=== PATIENT | male | born 1935 | race Caucasian/White ===

== ENCOUNTER 2021-02-24 10:00 | Outpatient (REF) | payer MEDICARE, SELFPAY ==
[2021-02-24 11:43] LABS: Hematocrit 42.4 % (42.0-52.0); Hemoglobin 14.3 g/dl (14.0-18.0); Mean Corpuscular HGB Conc 33.7 g/dl (31.0-36.0); Mean Corpuscular Hemoglobin 32.6 pg (27.0-33.0); Mean Corpuscular Volume 96.6 fL (80.0-98.0); Mean Platelet Volume 10.3 fL (9.4-12.4); Platelet Count 192 X10*3/uL (160-400); Red Blood Count 4.39 X10*6/uL (4.60-5.80); Red Cell Distribution Width 12.5 % (11.0-16.0)
[2021-02-24 12:06] LABS: Alanine Aminotransferase 27 U/L (0-40); Albumin Level 4.1 g/dL (3.5-5.0); Alkaline Phosphatase 61 U/L (39-117); Anion Gap 10 (12-20); Aspartate Amino Transferase 29 U/L (5-37); Bilirubin Total 0.6 mg/dL (0.0-1.0); Blood Urea Nitrogen 25 mg/dL (9-16); Calcium 9.4 mg/dL (8.4-10.2); Carbon Dioxide 27 mmol/L (22-29); Chloride 106 mmol/L (96-108); Estimated Glomerular Filt Rate 57; Glucose Random 82 mg/dL (60-115); Potassium 4.1 mmol/L (3.3-5.1); Sodium 139 mmol/L (135-145); Total Protein 7.2 g/dL (6.5-8.0)
== END 2021-02-24 10:01 | disposition home or self-care (01) ==
LOC: HO.LAB 10:00
PROVIDERS: PCP Internal Medicine; Referring Provider Internal Medicine; Visit Provider Nurse Practitioner Family
DX: R15.9 Full incontinence of feces (principal)
CPT/HCPCS: 36415; 80053; 85027; 99202

== ENCOUNTER 2021-04-02 10:26 | Day surgery (SDC) | payer MEDICARE, SELFPAY ==
[2021-04-02 11:02] VITALS: BP 175/98; PULSE 54; RESP 18; TEMP 36.2; O2SAT 97; BMI 25.9
[2021-04-02] MEDS: Lactated Ringers 1,000 ML 100 ML IVCONT (11:30)
--- NOTE | 2021-04-02 11:53 | P.HPSUR_ITS ---
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 christianity region Hx of arthroscopy Hx of cholecystectomy Hx of colonoscopy Hx of inguinal hernia repair Hx of knee surgery) Allergies: Allergies Allergy/AdvReac Type Severity Reaction Status Date / Time Iodinated Contrast Media AdvReac Severe ALTERED Verified 04/02/21 11:07 [IV Dye, Iodine Containing] MENTAL STATUS Review of Systems Sugical H&P ROS: Negative: Constitution, Cardiovascular, Respiratory, Neurological, Psychiatric, Hem-Onc, Allergic/Immunologic, Gastrointestinal, Genitourinary, Musculoskeletal, Integumentary, Endocrine and Eyes/Ears/Nose/Throat Exam Surgical H&P Exam: Normal: HEENT, Normal: Heart, Normal: Lungs, Normal: Extremities, Normal: Abdomen, Normal: Skin and Normal: Neurological Plan Diagnosis/Plan: Unchanged I have reviewed the history and physical and performed a pertinent physical examination on my patient. No changes have occurred unless specified.
--- NOTE | 2021-04-02 11:53 | HO.ANESPROP2 ---
[facility] Family History Family History (Updated 02/24/21 @ 10:44 by Rosemarie Bermudez) Maternal Grandmother Diabetes Maternal Uncle Diabetes Maternal Aunt Diabetes Mother Diabetes HTN (hypertension) Colon cancer Stroke Father Hernia Stroke Diverticulosis Pneumonia Brother Epilepsia Schizophrenia Surgical History Surgical History (Updated 02/24/21 @ 10:51 by Rosemarie Bermudez) History of cataract History of herniated intervertebral disc History of lithotripsy History of prostate surgery History of surgical removal of squamous cell carcinoma of skin of roman catholic region Hx of arthroscopy Hx of cholecystectomy Hx of colonoscopy Hx of inguinal hernia repair Hx of knee surgery Social History Social History (Updated 02/24/21 @ 10:12 by Rosemarie Bermudez) Alcohol intake: current Alcohol intake frequency: holidays/special occasions only Patient Tobacco Use Status: Never used Tobacco Use of substances other than those prescribed or required for medical reasons: No Have you been hit, kicked, punched, or otherwise hurt by someone within the past year? If so, by whom?: No Are you DNR?: No Advance Directives: No Advance Directives Information Provided: Yes Recently lost weight without trying: No Nutrition Risks: No Nutritional Risk Meds Allergies Allergy/AdvReac Type Severity Reaction Status Date / Time Iodinated Contrast Media AdvReac Severe ALTERED Verified 04/02/21 11:07 [IV Dye, Iodine Containing] MENTAL STATUS Home Medications Medication Instructions Recorded Confirmed Last Taken Type atenolol 50 mg tablet 50 mg PO DAILY 02/24/21 02/24/21 Unknown History cholecalciferol (vitamin D3) 25 25 mcg PO DAILY 02/24/21 02/24/21 Unknown History mcg (1,000 unit) capsule pravastatin 40 mg tablet 40 mg PO BEDTIME 02/24/21 02/24/21 Unknown History Exam Exam Date and Time: April 02, 2021 1153 Height,Weight and Vital Signs: Height 5 ft 6 in Weight 73.028 kg Last Vital Signs Temp 97.2 F 04/02/21 11:02 Pulse 54 04/02/21 11:02 Resp 18 04/02/21 11:02 BP 175/98 H 04/02/21 11:02 Pulse Ox 97 04/02/21 11:02 Airway Mallampati Class: II
--- NOTE | 2021-04-02 11:53 | HO.ANESPROP2 ---
COUNTS INCLUDE 234 BEDS AT THE [facility] Family History Family History (Updated 02/24/21 @ 10:44 by Rosemarie Bermudez) Maternal Grandmother Diabetes Maternal Uncle Diabetes Maternal Aunt Diabetes Mother Diabetes HTN (hypertension) Colon cancer Stroke Father Hernia Stroke Diverticulosis Pneumonia Brother Epilepsia Schizophrenia Family history of problems with anesthesia: No Surgical History Surgical History (Updated 02/24/21 @ 10:51 by Rosemarie Bermudez) History of cataract History of herniated intervertebral disc History of lithotripsy History of prostate surgery History of surgical removal of squamous cell carcinoma of skin of denominational region Hx of arthroscopy Hx of cholecystectomy Hx of colonoscopy Hx of inguinal hernia repair Hx of knee surgery History of Problems with Anesthesia: No Social History Social History (Updated 02/24/21 @ 10:12 by Rosemarie Bermudez) Alcohol intake: current Alcohol intake frequency: holidays/special occasions only Patient Tobacco Use Status: Never used Tobacco Use of substances other than those prescribed or required for medical reasons: No Have you been hit, kicked, punched, or otherwise hurt by someone within the past year? If so, by whom?: No Are you DNR?: No Advance Directives: No Advance Directives Information Provided: Yes Recently lost weight without trying: No Nutrition Risks: No Nutritional Risk Meds Allergies Allergy/AdvReac Type Severity Reaction Status Date / Time Iodinated Contrast Media AdvReac Severe ALTERED Verified 04/02/21 11:07 [IV Dye, Iodine Containing] MENTAL STATUS Home Medications Medication Instructions Recorded Confirmed Last Taken Type atenolol 50 mg tablet 50 mg PO DAILY 02/24/21 02/24/21 Unknown History cholecalciferol (vitamin D3) 25 25 mcg PO DAILY 02/24/21 02/24/21 Unknown History mcg (1,000 unit) capsule pravastatin 40 mg tablet 40 mg PO BEDTIME 02/24/21 02/24/21 Unknown History Exam Exam Date and Time: April 02, 2021 1153 Height,Weight and Vital Signs: Height 5 ft 6 in Weight 73.028 kg Last Vital Signs Temp 97.2 F 04/02/21 11:02 Pulse 54 04/02/21 11:02 Resp 18 04/02/21 11:02 BP 175/98 H 04/02/21 11:02 Pulse Ox 97 04/02/21 11:02 Airway Mallampati Class: II TM Dist: >3cm Neck ROM: Full Assessment and Plan Assessment Anesthesia Assessment: Anesthesia Plan Discussed and Chart Reviewed Final Anesthetic Review Family History of Problems with Anesthesia: No History of Problems with Anesthesia: No NPO: Yes ASA Class: II Final Preanesthetic Review: No Changes in Pt Med Stat, Meds/Allgs Chart Reviewed, Consent Obtained/Reviewed and Anes Risks/Benef Reviewed Patient Risk: Intermediate Procedure Risk: Low Anesthetic Plan Anesthetic Plan: MAC: Disposition: Standard PACU
--- NOTE | 2021-04-02 11:54 | P.OP_ITS ---
Operative Note Operative Note Date of Service: 04/02/21 Narrative: Operative Information Procedure Description: Colonoscopy COLONOSCOPY Instrument: Olympus variable stiffness pediatric scope 190L Colonoscopy Monitoring: Vital signs and clinical assessment, continuous EKG monitoring, Pulse oximetry, Carbon Dioxide monitoring and blood pressure monitoring were done throughout the procedure. Colon withdrawal time was 6 minutes. Procedure: The patient was placed in the left lateral decubitis position and pre-procedure medications were administered. After a digital rectal examination of the ano-rectum, the video colonoscope was inserted into the rectum and advanced through the colon to the cecum/TI. The colonoscope was slowly withdrawn in a retrograde panoramic fashion and the colon mucosa was carefully examined including a retroflexed view of the rectum. Findings and interventions are described below. Procedure Diffi easyculty: Findings: Terminal Ileum-normal Cecum:normal Ascending Colon: normal Transverse Colon -normal Descending Colon:normal Sigmoid Colon: moderately severe diverticulosis Rectum: Retroflexion with small internal hemorrhoids, grade I Anorectum - normal, he had good squeeze and normal tone on rectal exam, no masses felt, no paradoxical contraction Colon preparation: [place] Bowel Preparation Scale Right colon; 2 Transverse colon: 2 Left colon; 2 (0 = Unprepared colon segment with mucosa not seen due to solid stool that cannot be cleared. 1 = Portion of mucosa of the colon segment seen, but other areas of the colon segment not well seen due to staining, residual stool and/or opaque liquid. 2 = Minor amount of residual staining, small fragments of stool and/or opaque liquid, but mucosa of colon segment seen well. 3 = Entire mucosa of colon segment seen well with no residual staining, small fragments of stool or opaque liquid) Impression and Post Procedure Diagnosis: internal hemorrhoids Plan: High fiber diet leaflet Avoid straining at stool, epsom salts and sitz bath, anusol supps or cream Repeat Colonoscopy in 5 years if health allows or earlier if clinically indicated, otherwise this would be his last screening colonoscopy He can increase the citrucel to BID Above findings were reviewed with the patient and relevant handouts were provided if indicated.
--- NOTE | 2021-04-02 11:54 | PM.OP ---
Brief Operative Note Date of Service: 04/02/21 Pre-op diagnosis: screening colonoscopy Post-op diagnosis: same Procedure: see op note Surgeon: Gentry Angulo MD Anesthesia: MAC Was an [employer] used for this Procedure?: No Estimated blood loss (mL): 0 Condition: stable Disposition: PACU
[2021-04-02 12:45] VITALS: BP 119/75; PULSE 55; RESP 16; TEMP 36.2; O2SAT 97
[2021-04-02 13:00] VITALS: BP 151/87; PULSE 48; RESP 16; O2SAT 97
[2021-04-02 13:30] VITALS: BP 163/95; PULSE 47; RESP 16; TEMP 36.2; O2SAT 98
== END 2021-04-02 14:17 | disposition home or self-care (01) ==
PROVIDERS: PCP Internal Medicine; Visit Provider Internal Medicine Gastroenterology
PROC: 0DJD8ZZ Inspection of Lower Intestinal Tract, Via Natural or Artificial Opening Endoscopic (ICD-10-PCS; CPT 45378; principal; 2021-04-02 11:40)
DX: Z12.11 Encounter for screening for malignant neoplasm of colon (principal); Z80.0 Family history of malignant neoplasm of digestive organs; K57.30 Diverticulosis of large intestine without perforation or abscess without bleeding; K64.0 First degree hemorrhoids; R15.9 Full incontinence of feces; I10 Essential (primary) hypertension; E78.5 Hyperlipidemia, unspecified; Z79.899 Other long term (current) drug therapy; Z85.828 Personal history of other malignant neoplasm of skin; Z90.49 Acquired absence of other specified parts of digestive tract; Z87.442 Personal history of urinary calculi; Z91.041 Radiographic dye allergy status
CPT/HCPCS: G0105

== ENCOUNTER → 2021-04-16 07:59 | Outpatient (BNVA) | payer MEDICARE, SELFPAY | PROVIDERS: PCP Internal Medicine; Referring Provider Internal Medicine; Visit Provider Nurse Practitioner Family | DX: R15.0 Incomplete defecation (principal); Z98.890 Other specified postprocedural states | CPT/HCPCS: 99212 ==

== ENCOUNTER 2021-05-30 14:31 | Outpatient (REF) | payer MEDICARE, SELFPAY ==
[2021-05-30 14:47] LABS: MANUAL DIFF FLAG NO
[2021-05-30 15:15] LABS: Basophils Absolute Auto 0.1 X10*3/uL (0.0-0.2); Basophils Percent Auto 1.3 % (0-2); Eosinophils Absolute Auto 0.3 X10*3/uL (0.0-0.4); Eosinophils Percent Auto 5.3 % (0-4); Hemoglobin 15.3 g/dl (14.0-18.0); Imm Gran Abs Auto 0.01 X10*3/uL (0.00-0.03); Imm Gran Pct Auto 0.2 % (0.0-0.4); Lymphocytes Absolute Auto 1.1 X10*3/uL (1.2-4.9); Lymphocytes Percent Auto 18.1 % (20-40); Mean Corpuscular Hemoglobin 32.6 pg (27.0-33.0); Mean Corpuscular Volume 95.7 fL (80.0-98.0); Mean Platelet Volume 10.3 fL (9.4-12.4); Monocytes Absolute Auto 0.5 X10*3/uL (0.1-1.2); Monocytes Percent Auto 7.3 % (2-11); Neutrophils Absolute Auto 4.2 x10*3/uL (2.0-8.3); Neutrophils Percent Auto 67.8 % (45-73); Platelet Count 228 X10*3/uL (160-400); Red Cell Distribution Width 12.4 % (11.0-16.0); White Blood Count 6.2 X10*3/uL (4.8-10.8)
[2021-05-30 15:38] LABS: Alanine Aminotransferase 44 U/L (0-40); Albumin Level 4.6 g/dL (3.5-5.0); Alkaline Phosphatase 59 U/L (39-117); Anion Gap 11 (12-20); Aspartate Amino Transferase 52 U/L (5-37); Blood Urea Nitrogen 20 mg/dL (9-16); Carbon Dioxide 28 mmol/L (22-29); Chloride 105 mmol/L (96-108); Cholesterol 181 mg/dL; Estimated Glomerular Filt Rate 53; Glucose Fasting 87 mg/dL (60-99); HDL Cholesterol 53 mg/dL; LDL Cholesterol Calculated 111 mg/dl; Potassium 4.3 mmol/L (3.3-5.1); Sodium 140 mmol/L (135-145); Triglycerides 86 mg/dL
[2021-05-30 16:02] LABS: Prostate Specific Antigen < 0.05 ng/mL (<0.05-4.0); Vitamin D 25-OH Total 36.5 ng/mL (>30)
== END 2021-05-30 14:32 | disposition home or self-care (01) ==
LOC: HO.LAB 14:31
PROVIDERS: PCP Internal Medicine; Visit Provider Internal Medicine
DX: Z12.5 Encounter for screening for malignant neoplasm of prostate (principal); I12.9 Hypertensive chronic kidney disease with stage 1 through stage 4 chronic kidney disease, or unspecified chronic kidney disease; N18.9 Chronic kidney disease, unspecified; E55.9 Vitamin D deficiency, unspecified; E78.00 Pure hypercholesterolemia, unspecified
CPT/HCPCS: 36415; 80053; 80061; 82306; 84153; 85025

== ENCOUNTER 2022-11-13 10:23 | Outpatient (AMB) | payer MEDICARE, SELFPAY ==
--- NOTE | 2022-11-13 10:28 | AM.OFFWIN_ITS ---
Intake Vital Signs 11/13/22 10:30 BP 152/90 H Blood Pressure Location Lt brachial Position Sitting Pulse 46 L Pulse Source Pulse Oximeter Temp 98.0 F Temp Source Oral Pulse Oximetry (%) 96 Intake Visit Reasons: EST/mosquito bite, fuzzy/dizzy Intake Note: Pt is here today c/o dizzy and vomiting after having a mosquito bite a week before Patient Tobacco Use Status: Never used Tobacco Allergies Iodinated Contrast Media [IV Dye, Iodine Containing] Adverse Reaction (Severe, Verified 11/13/22 10:32) ALTERED MENTAL STATUS HPI HPI Comments History of Present Illness Details 87-year-old male presents with 4 days of nausea, vomiting, dizziness, and diarrhea, does state that he was bitten by a mosquito while outside last week and is concerned about [place]. Patient does not report any chest pain or pressure, palpitations, shortness of breath, fevers, chills, rashes, or abdominal distention or pain. PFSH Surgical History History of cataract History of herniated intervertebral disc History of lithotripsy History of prostate surgery History of surgical removal of squamous cell carcinoma of skin of congregational region Hx of arthroscopy Hx of cholecystectomy Hx of colonoscopy Hx of inguinal hernia repair Hx of knee surgery Family History Maternal Grandmother Diabetes Maternal Uncle Diabetes Maternal Aunt Diabetes Mother Diabetes HTN (hypertension) Colon cancer Stroke Father Hernia Stroke Diverticulosis Pneumonia Brother Epilepsia Schizophrenia Social History Alcohol intake: current Alcohol intake frequency: holidays/special occasions only Patient Tobacco Use Status: Never used Tobacco Review of Systems Const Details: Constitutional: No Fever, No Chills ENT/Mouth: No Ear Pain, No Hoarseness, No sore throat Eyes: No Eye Pain, No Swelling, No Redness, No Foreign Body Cardiovascular: No Chest Pain, No SOB Respiratory: No Cough, No Dyspnea Gastrointestinal: Positive Nausea, positive Vomiting, positive Diarrhea, No abdominal Pain Genitourinary: No Dysuria, No Hematuria Musculoskeletal: No joint pain, No Myalgias, No Joint Swelling Skin: No Skin lacerations, No rash Neuro: No Weakness, No Numbness, No Paresthesias, No Loss of Consciousness, positive Dizziness, No Headache All systems reviewed & are unremarkable except as noted in HPI and below Physical Exam Vital Signs: Last Vital Signs Temp 98.0 F 11/13/22 10:30 Pulse 46 L 11/13/22 10:30 BP 152/90 H 11/13/22 10:30 Pulse Ox 96 11/13/22 10:30 Appearance: Alert. Oriented X3. No acute distress. Eyes: Pupils equal, round and reactive to light. Neck: Normal inspection. Neck supple. CVS: Bradycardic heart rate and rhythm. Respiratory: No respiratory distress. Breath sounds normal. Skin: Skin warm and dry. Normal skin color. Normal skin turgor. Extremities: No lower extremity edema. Steady gait. Neuro: No motor deficit. No sensory deficit. Cranial nerves 2-12 intact Assessment & Plan Assessment & Plan (1) Dizziness: Code(s): R42 - Dizziness and giddiness (2) Bradycardia: Code(s): R00.1 - Bradycardia, unspecified (3) Nausea vomiting and diarrhea: Code(s): R11.2 - Nausea with vomiting, unspecified; R19.7 - Diarrhea, unspecified Plan 87-year-old male presents with 4 days of nausea, vomiting, dizziness, and diarrhea, does state that he was bitten by a mosquito while outside last week and is concerned about [place] Nile. Patient does not report any chest pain or pressure, palpitations, shortness of breath, fevers, chills, rashes, or abdominal distention or pain. During my evaluation, patient does not state feel dizzy at this time however his heart rate is 46, and he is not on any rate controlling medications. Considering that he has had 4 days of nausea, vomiting, and diarrhea, I do have significant concerns about electrolyte imbalance, as well as infection. Patient requires care that supersedes the capacity of this facility, patient should be evaluated at the emergency department. I did discuss my concerns with the patient and the patient's family, who agrees with my plan. Called provided a provider report to [facility], where they will arrived by private vehicle. I did offer an ambulance, however patient and patient's family would like to go by private vehicle. Patient's wishes respected. Patient verbalized understanding of discharge instructions. Verbalized understandings of signs and symptoms indicating need for emergent intervention. Patient Instructions: Please present to the emergency department for evaluation. Coding Level of Care Code Est Pt Level 3 (69737) Diagnoses Dizziness R42 Bradycardia R00.1 Nausea vomiting and diarrhea R11.2; R19.7
[2022-11-13 10:30] VITALS: BP 152/90; PULSE 46; TEMP 36.7; O2SAT 96
== END 2022-11-13 11:27 | disposition home or self-care (01) ==
PROVIDERS: PCP Internal Medicine; Visit Provider Nurse Practitioner Family
DX: R42 Dizziness and giddiness (principal); R00.1 Bradycardia, unspecified; R11.2 Nausea with vomiting, unspecified; R19.7 Diarrhea, unspecified
CPT/HCPCS: 99213

== ENCOUNTER 2022-11-13 11:28 | Observation (INO) | payer MEDICARE, SELFPAY ==
[2022-11-13] VITALS (10 sets, daily range): BP systolic 146–203; BP diastolic 86–103; PULSE 40–49; RESP 13–20; TEMP 36.4–37.1; O2SAT 96–98; BMI 27.5
--- NOTE | ~2022-11-13 | XR_ITS ---
EXAMINATION: XR CHEST CLINICAL INFORMATION: Chest pain COMPARISON: 07/31/2013 TECHNIQUE: Frontal view of the chest was obtained. FINDINGS: Cardiac leads overlie the chest. The lungs are well expanded. There is no focal consolidation, edema, or effusion. No pneumothorax. The cardiomediastinal silhouette is within normal limits. No acute osseous abnormality. XR/XR chest 1V IMPRESSION: Clear lungs.
--- NOTE | 2022-11-13 11:30 | ECG_ITS ---
Test Reason : LOW HR Blood Pressure : / mmHG Vent. Rate : 038 BPM Atrial Rate : 038 BPM P-R Int : 158 ms QRS Dur : 102 ms QT Int : 480 ms P-R-T Axes : 040 -49 011 degrees QTc Int : 381 ms Marked sinus bradycardia Left anterior fascicular block Minimal voltage criteria for LVH, may be normal variant ( R in aVL ) Abnormal ECG When compared with ECG of 28-JUN-2013 10:52, Vent. rate has decreased BY 27 BPM Referred By: Ellie Bailey Electronically Signed By:Davis Griffiths
--- NOTE | 2022-11-13 11:52 | ED.GENADULT ---
HPI - General Adult General Chief complaint: Arrhythmia/Palpitations Stated complaint: Low Heart Rate Time Seen by Provider: 11/13/22 14:56 Source: patient, EMS, RN notes reviewed and old records reviewed Mode of arrival: EMS History of Present Illness HPI narrative: 87-year-old male with a past medical history of HLD, HTN, presenting to the ED sent in from Urgent Care for symptomatic bradycardia. Patient reports generalized fatigue, lightheadedness, nausea, nonbloody emesis and diarrhea x 4 days. Denies feeling lightheaded at present. Patient admits he was bit by a mosquito last week and now is concern for West Nile virus. Denies fever/chills, cough, chest pain, palpitations, SOB, rash, abdominal pain, dysuria/hematuria Onset (ago): day(s) Related Data Home Medications Medication Instructions Recorded Confirmed atenolol 50 mg tablet 50 mg PO DAILY 02/24/21 02/24/21 pravastatin 40 mg tablet 40 mg PO BEDTIME 02/24/21 02/24/21 Allergies Allergy/AdvReac Type Severity Reaction Status Date / Time Iodinated Contrast Media AdvReac Severe ALTERED Verified 11/13/22 11:55 [IV Dye, Iodine Containing] MENTAL STATUS Review of Systems Review of Systems: Constitutional: No Fever, No Chills, + Fatigue, No Malaise ENT/Mouth: No Ear Pain, No Nasal Congestion, No Sinus Pain, No Hoarseness, No sore throat, No Rhinorrhea, No Swallowing Difficulty Eyes: No Eye Pain, No Swelling, No Redness, No Vision Changes Cardiovascular: No Chest Pain, No SOB, No Dyspnea on Exertion, No Orthopnea, No Edema, No Palpitations Respiratory: No Cough, No Sputum, No Dyspnea Gastrointestinal: + Nausea, + Vomiting, + Diarrhea, No Constipation, No Abdominal pain Genitourinary: No Dysuria, No Urinary Frequency, No Hematuria, No Urinary Incontinence/retention, No Flank Pain Musculoskeletal: No joint pain, No Myalgias, No Joint Swelling Skin: No Skin Lesions, No rash Neuro: No Weakness, No Numbness, No Paresthesias, No Loss of Consciousness, + lightheaded, No Headache Yes all other systems are reviewed and are negative Constitutional: Constitutional: Reports as per HPI Neurologic: Denies Abnormal speech present PMFSH Past Medical History Attestation statement: The following information was validated with the patient. 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 Hx of arthroscopy Hx of cholecystectomy Hx of colonoscopy Hx of inguinal hernia repair Hx of knee surgery Family History Family History Maternal Grandmother Diabetes Maternal Uncle Diabetes Maternal Aunt Diabetes Mother Diabetes HTN (hypertension) Colon cancer Stroke Father Hernia Stroke Diverticulosis Pneumonia Brother Epilepsia Schizophrenia Social History Social History Alcohol intake: current Alcohol intake frequency: holidays/special occasions only Patient Tobacco Use Status: Never used Tobacco Smoked in Last 30 Days: No Use of substances other than those prescribed or required for medical reasons: No Advance Directives: No Advance Directives Information Provided: No Physical Exam ED Vital Signs: Vital Signs - 24 hr 11/13/22 11:51 11/13/22 12:22 11/13/22 13:01 Temperature 97.8 F 97.6 F Pulse Rate 41 L 41 L 40 L Respiratory Rate 16 18 13 Blood Pressure 203/95 H 172/87 H 184/103 H Pulse Oximetry 97 98 96 Oxygen Delivery Method Room Air Room Air 11/13/22 14:04 11/13/22 15:08 Temperature 97.6 F 97.9 F Pulse Rate 43 L 42 L Respiratory Rate 14 14 Blood Pressure 171/90 H 187/91 H Pulse Oximetry 96 96 Oxygen Delivery Method Room Air Room Air BMI result Body Mass Index 27.5 Const General: cooperative, healthy appearing, no acute distress, alert and awake Orientation/consciousness: patient oriented x3 Limitations: no limitations HENMT Head: Yes normal to inspection and Yes atraumatic Ears: hearing grossly normal bilaterally General nose exam: Normal external nose present Face and sinus: Yes normal facial exam Throat: Yes posterior oropharynx normal and Yes uvula midline Eyes General: appearance normal, both eyes and all related structures Pupils: Equal, round and reactive pupils present EOM: EOMs intact bilaterally Neck Neck: Yes normal visual inspection and Yes no meningeal signs Resp Effort & Inspection: normal respiratory effort and no respiratory distress Auscultation: clear to auscultation bilaterally, no crackles and no wheezes Cardio Rate: bradycardic Heart sounds: S1 normal heart sound present and S2 normal heart sound present GI Inspection: Yes normal to inspection Palpation (GI): Soft to palpation, nontender, no guarding and not rigid Skin Rashes: no rashes Wounds: no wounds Neuro General: patient oriented x3, tone normal, moves all extremities, no meningeal signs, no focal motor deficits and CN's II-XI intact bilaterally Cranial nerves: Yes CN's II-XII intact bilaterally and Yes Equal, round and reactive pupils present Cognition (Neuro): normal cognition Speech: No Abnormal speech present Gait exam (Neuro): Normal gait present Motor exam (neuro): 5/5 motor strength present throughout Extrem General: Yes normal to inspection, Yes no pedal edema and Yes no calf tenderness Course Course Course Narrative: This is an RME: Additional HPI, ROS, PE not included below will be deferred to primary provider. 87-year-old male presents from walk-in clinic complaints of lightheadedness, nausea, vomiting, diarrhea reports he was bit by mosquitos on the neck any thought there was a stinger, attributes the symptoms to mosquito bite. Also reporting fatigue and malaise. Was noted to be bradycardic at urgent care. When he arrives his heart rate is 40. Physical exam benign plan labs, imaging, EKG. -[id number]--labs reassuring. Troponin negative XR chest 1V IMPRESSION: Clear lungs. -Case discussed with Cardiology, Dr. Griffiths who recommended ambulating patient to monitor heart rate response, IVF for resuscitation, & discontinuing Atenolol > and starting low-dose Amlodipine 2.5 mg -patient ambulated with heart rate monitor and heart rate went up to 62. Plan to admit for further management/observation -patient's for a persistently low, 40 at present plan to admit for further management/observation Medical Decision Making Medical Decision Making MDM Narrative: 87-year-old male with a past medical history of HLD, HTN, presenting to the ED sent in from Urgent Care for symptomatic bradycardia. Patient reports generalized fatigue, lightheadedness, nausea, nonbloody emesis and diarrhea x 4 days. On exam hypertensive, bradycardic, NAD/nontoxic appearing, lungs CTA, no pedal edema, no focal neuro deficits. Concern for symptomatic bradycardia vs metabolic abnormalities including dehydration. Rule out infectious etiology vs viral syndrome/tick-borne illness & orthostasis. Lower suspicion for ACS/PE or dissection Plan: EKG, labs, UA, CXR, orthostatics, tick-borne labs, admission Pacer pads applied upon ED arrival Please refer to course for remaining clinical decision making, interpretation of labs/imaging results, and discussions with consultants and/or family members. Differential Diagnosis Differential Diagnoses: The differential diagnosis associated with the presentation includes As above Admission/Observation Consideration of admission/observation: Escalation of care including admission/observation considered Consult Healthcare Provider Management of the patient was discussed with: [employer] Lab Data MDM Lab Attestation statement: I reviewed the patient's lab results. 11/13/22 11:45 11/13/22 11:45 Labs: Lab Results 11/13/22 11/13/22 11/13/22 Range/Units 11:45 11:45 11:45 WBC 5.2 (4.8-10.8) X10*3/uL RBC 4.61 (4.60-5.80) X10*6/uL Hgb 15.1 (14.0-18.0) g/dl Hct 44.3 (42.0-52.0) % MCV 96.1 (80.0-98.0) fL MCH 32.8 (27.0-33.0) pg MCHC 34.1 (31.0-36.0) g/dl RDW 12.8 (11.0-16.0) % Plt Count 209 (160-400) X10*3/uL MPV 10.2 (9.4-12.4) fL Immature Gran % (Auto) 0.2 (0.0-0.4) % Neut % (Auto) 63.5 (45-73) % Lymph % (Auto) 20.4 (20-40) % [place] % (Auto) 9.6 (2-11) % Eos % (Auto) 5.0 H (0-4) % Baso % (Auto) 1.3 (0-2) % Lymph # (Auto) 1.1 L (1.2-4.9) X10*3/uL [place] # (Auto) 0.5 (0.1-1.2) X10*3/uL Eos # (Auto) 0.3 (0.0-0.4) X10*3/uL Baso # (Auto) 0.1 (0.0-0.2) X10*3/uL Abs Immat Gran (auto) 0.01 (0.00-0.03) X10*3/uL Absolute Neuts (auto) 3.3 (2.0-8.3) x10*3/uL Absolute Nucleated RBC 0.000 (0.0-0.012) X10*3/uL Nucleated RBC % (auto) 0.0 (0.0-0.2) /100WBC Sodium 141 (135-145) mmol/L Potassium 4.2 (3.3-5.1) mmol/L Chloride 107 (96-108) mmol/L Carbon Dioxide 26 (22-29) mmol/L Anion Gap 12 (12-20) BUN 15 (9-16) mg/dL Creatinine 1.08 (0.5-1.4) mg/dL Estim Creat Clear Calc 48.0 Estimated GFR > 60 Random Glucose 84 (60-115) mg/dL Calcium 10.1 (8.4-10.2) mg/dL Magnesium 2.2 (1.6-2.6) mg/dL Total Bilirubin 0.6 (0.0-1.0) mg/dL AST 31 (5-37) U/L ALT 22 (0-40) U/L Alkaline Phosphatase 56 (39-117) U/L Troponin I High Sens (<3.5-35.0) ng/L Total Protein 8.0 (6.5-8.0) g/dL Albumin 4.3 (3.5-5.0) g/dL Lipase (8-78) U/L Urine Color Urine Appearance Urine pH (5.0-9.0) Ur Specific [place] (1.005-1.025) Urine Protein (Neg-Trace) mg/dL Urine Glucose (UA) (Negative) mg/dL Urine Ketones (Negative) mg/dL Urine Blood (Negative) Urine Nitrite (Negative) Ur Leukocyte Esterase (Negative) Urine RBC (0-2) /HPF Urine WBC (0-5) /HPF Ur Squamous Epith Cells (0-2) /HPF Urine Bacteria (None Seen) Hyaline Casts (0-2) /LPF COVID-19 (ISABELA) Negative (Negative) COVID-19 Clin Com See Note 11/13/22 11/13/22 11/13/22 Range/Units 12:57 12:57 15:14 WBC (4.8-10.8) X10*3/uL RBC (4.60-5.80) X10*6/uL Hgb (14.0-18.0) g/dl Hct (42.0-52.0) % MCV (80.0-98.0) fL MCH (27.0-33.0) pg MCHC (31.0-36.0) g/dl RDW (11.0-16.0) % Plt Count (160-400) X10*3/uL MPV (9.4-12.4) fL Immature Gran % (Auto) (0.0-0.4) % Neut % (Auto) (45-73) % Lymph % (Auto) (20-40) % [place] % (Auto) (2-11) % Eos % (Auto) (0-4) % Baso % (Auto) (0-2) % Lymph # (Auto) (1.2-4.9) X10*3/uL [place] # (Auto) (0.1-1.2) X10*3/uL Eos # (Auto) (0.0-0.4) X10*3/uL Baso # (Auto) (0.0-0.2) X10*3/uL Abs Immat Gran (auto) (0.00-0.03) X10*3/uL Absolute Neuts (auto) (2.0-8.3) x10*3/uL Absolute Nucleated RBC (0.0-0.012) X10*3/uL Nucleated RBC % (auto) (0.0-0.2) /100WBC Sodium (135-145) mmol/L Potassium (3.3-5.1) mmol/L Chloride (96-108) mmol/L Carbon Dioxide (22-29) mmol/L Anion Gap (12-20) BUN (9-16) mg/dL Creatinine (0.5-1.4) mg/dL Estim Creat Clear Calc Estimated GFR Random Glucose (60-115) mg/dL Calcium (8.4-10.2) mg/dL Magnesium 2.3 (1.6-2.6) mg/dL Total Bilirubin (0.0-1.0) mg/dL AST (5-37) U/L ALT (0-40) U/L Alkaline Phosphatase (39-117) U/L Troponin I High Sens 4.9 (<3.5-35.0) ng/L Total Protein (6.5-8.0) g/dL Albumin (3.5-5.0) g/dL Lipase 32 (8-78) U/L Urine Color Yellow Urine Appearance Cloudy Urine pH 7.0 (5.0-9.0) Ur Specific [place] 1.020 (1.005-1.025) Urine Protein 30 (1+) H (Neg-Trace) mg/dL Urine Glucose (UA) Negative (Negative) mg/dL Urine Ketones Negative (Negative) mg/dL Urine Blood Negative (Negative) Urine Nitrite Negative (Negative) Ur Leukocyte Esterase Negative (Negative) Urine RBC 0-2 (0-2) /HPF Urine WBC 0-5 (0-5) /HPF Ur Squamous Epith Cells 0-2 (0-2) /HPF Urine Bacteria None Seen (None Seen) Hyaline Casts 0-2 (0-2) /LPF COVID-19 (ISABELA) (Negative) COVID-19 Clin Com Independent Interpretation I performed an independent interpretation of an: EKG (EKG sinus bradycardia at a rate of 38. QTC 381. No STEMI. Artifact present ) Radiology Impression Discussion of test interpretation with radiology: I have reviewed the radiologist's reading. Independent Historian Clinical information obtained from an independent historian. History obtained from or confirmed by: Spouse and EMS External Record Review External record reviewed: Inpatient record, Office record, Outpatient record, Prior outpatient labs, Prior outpatient radiology, Primary care record and Outside ED record Tests considered The following testing was considered but not selected: As above Chronic Conditions Patient?s care impacted by: Hypertension and Other (HLD) Critical Care Time Critical Care Time Critical Care Time: Yes Total Critical Care Time: 45 Attestation: I have personally provided critical care time exclusive of time spent on separately billable procedures. Time includes review of lab data, radiology results, discussion with consultants, and monitoring for potential decompensation. Intervention performed as documented. Discharge Plan Discharge Clinical Impression: Symptomatic bradycardia Patient Disposition: Admitted As Inpatient Additional Instructions: Stops taking atenolol Start taking 2.5 mg of Amlodipine
[2022-11-13 11:53] LABS: MANUAL DIFF FLAG NO
[2022-11-13 11:54] LABS: Basophils Absolute Auto 0.1 X10*3/uL (0.0-0.2); Basophils Percent Auto 1.3 % (0-2); Eosinophils Absolute Auto 0.3 X10*3/uL (0.0-0.4); Hematocrit 44.3 % (42.0-52.0); Hemoglobin 15.1 g/dl (14.0-18.0); Imm Gran Abs Auto 0.01 X10*3/uL (0.00-0.03); Imm Gran Pct Auto 0.2 % (0.0-0.4); Lymphocytes Absolute Auto 1.1 X10*3/uL (1.2-4.9); Lymphocytes Percent Auto 20.4 % (20-40); Mean Corpuscular HGB Conc 34.1 g/dl (31.0-36.0); Mean Corpuscular Hemoglobin 32.8 pg (27.0-33.0); Mean Corpuscular Volume 96.1 fL (80.0-98.0); Mean Platelet Volume 10.2 fL (9.4-12.4); Monocytes Absolute Auto 0.5 X10*3/uL (0.1-1.2); Monocytes Percent Auto 9.6 % (2-11); Neutrophils Absolute Auto 3.3 x10*3/uL (2.0-8.3); Neutrophils Percent Auto 63.5 % (45-73); Platelet Count 209 X10*3/uL (160-400); Red Blood Count 4.61 X10*6/uL (4.60-5.80); Red Cell Distribution Width 12.8 % (11.0-16.0); White Blood Count 5.2 X10*3/uL (4.8-10.8)
--- NOTE | 2022-11-13 12:00 | PC.NURSE ---
pt is placed on pacer pads with crash cart at bedside. aware.
[2022-11-13 12:09] LABS: COVID-19 Test Negative (Negative); IDNOW Serial# 55D5AD1C
[2022-11-13 12:14] LABS: Alanine Aminotransferase 22 U/L (0-40); Albumin Level 4.3 g/dL (3.5-5.0); Alkaline Phosphatase 56 U/L (39-117); Anion Gap 12 (12-20); Aspartate Amino Transferase 31 U/L (5-37); Bilirubin Total 0.6 mg/dL (0.0-1.0); Blood Urea Nitrogen 15 mg/dL (9-16); Calcium 10.1 mg/dL (8.4-10.2); Carbon Dioxide 26 mmol/L (22-29); Chloride 107 mmol/L (96-108); Estimated Glomerular Filt Rate > 60; Glucose Random 84 mg/dL (60-115); Magnesium 2.2 mg/dL (1.6-2.6); Potassium 4.2 mmol/L (3.3-5.1); Sodium 141 mmol/L (135-145)
[2022-11-13 13:47] LABS: Lipase 32 U/L (8-78); Magnesium 2.3 mg/dL (1.6-2.6)
[2022-11-13 13:55] LABS: Troponin-I High Sensitivity 4.9 ng/L (<3.5-35.0)
[2022-11-13 15:22] LABS: Appearance Urine Cloudy; Color Urine Yellow; Glucose Urine UA Negative (Negative); Leukocyte Esterase Urine Negative (Negative); Nitrite Urine Negative (Negative); UMIC TRIGGER UACC YES; Urine Blood Negative (Negative); Urine Ketones Negative (Negative); Urine Protein 30 (1+) mg/dL (Neg-Trace)
[2022-11-13 15:25] LABS: Bacteria Urine None Seen (None Seen); Hyaline Casts Urine 0-2 /LPF (0-2); RBC Urine 0-2 /HPF (0-2); Squamous Epithelial Cell Urine 0-2 /HPF (0-2); WBC Urine 0-5 /HPF (0-5)
--- NOTE | 2022-11-13 18:46 | P.HPHOSP_ITS ---
I agree with the findings an LEONEL note, assessment and plan Patient comes in with nausea vomiting, after camping trip, found to have bradycardia, bradycardia likely incidental and he is noted to be bradycardic on previous visits, at this time will admit to telemetry, monitor, cardiology c onsulted. Will rule out Lyme disease For full note please see below History of Present Illness Date of Service: 11/13/22 Attending physician on admission: Paul Zamarripa Chief Complaint: Symptomatic bradycardia Pt is an 87-year-old male with a PMH significant for?HLD, HTN, hiatal hernia, an d kidney stones who presents to the ED for evaluation of nausea, vomiting, diarrhea x4 days. Patient and his family were camping in [place] this past week when patient says he began to develop nausea, vomiting, dizziness, chills, and diarrhea on Wednesday night. On Wednesday patient says he felt ?fuzzy? and dizzy but did not vomit, continued to have diarrhea. States he also had a rash developed on his right lower chest that has since resolved. On continued with diarrhea, lightheadedness, and dizziness, and nausea and vomiting returned. Decided to go to an urgent care in the morning. At urgent care pt was found to have a HR in the 30s and was sent to the ED for further evaluation. In ED patient's heart rate again dropped as low as the 30s, but increased to 62 when he ambulated with heart rate monitor on. At time of interview patient states he was feeling much better. Last episode of vomiting and diarrhea was the night prior. Denies fever, headache. No confusion. No chest pain/pressure, palpitations. Denies shortness of breath. Currently denies any lightheadedness or dizziness. Of note, patient continues to lead a very active lifestyle, especially for his age. 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 Pt does not wear a heart rate monitor and is unaware of what his baseline resting HR is. Record review shows his HR was 54-55 during a colonoscopy in 03/2021. In the ED patient was bradycardic as low as 40 and hypertensive as high as 203/95, satting 98% on RA. Labs were grossly unremarkable. Stable H&H. Electrolytes WNL. Hepatic function, renal function WNL. CXR showed clear lungs. EKG demonstrated sinus bradycardia of 38 with no evidence of ST elevations or depressions. Pt was treated with IVF. Pt will be admitted to the hospital under observation for monitoring of symptomatic bradycardia. Review of Systems Review of Systems: Bradycardia Lightheadedness, dizziness Nausea, vomiting Diarrhea Chills Rash on chest Denies headache No chest pain/pressure, palpitations No shortness of breath Yes all other systems are reviewed and are negative [facility] Family History Maternal Grandmother Diabetes Maternal Uncle Diabetes Maternal Aunt Diabetes Mother Diabetes HTN (hypertension) Colon cancer Stroke Father Hernia Stroke Diverticulosis Pneumonia Brother Epilepsia Schizophrenia Surgical History History of cataract History of herniated intervertebral disc History of lithotripsy History of prostate surgery 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 Hx of arthroscopy Hx of cholecystectomy Hx of colonoscopy Hx of inguinal hernia repair Hx of knee surgery Social History Alcohol intake: current Alcohol intake frequency: holidays/special occasions only Patient Tobacco Use Status: Never used Tobacco Smoked in Last 30 Days: No Use of substances other than those prescribed or required for medical reasons: No Advance Directives: No Advance Directives Information Provided: No Meds Allergies Allergy/AdvReac Type Severity Reaction Status Date / Time Iodinated Contrast Media AdvReac Severe ALTERED Verified 11/13/22 11:55 [IV Dye, Iodine Containing] MENTAL STATUS Home Medications Medication Instructions Recorded Confirmed Last Taken Type atenolol 50 mg tablet 50 mg PO DAILY 02/24/21 11/13/22 11/13/22 History pravastatin 40 mg tablet 40 mg PO BID 02/24/21 11/13/22 11/13/22 History multivitamin-ferrous 1 tab PO DAILY 11/13/22 11/13/22 11/13/22 History fumarate-folic acid 18 mg-400 mcg tablet vit B6-mag cit,ox-potassium cit 2 tab PO BID 11/13/22 11/13/22 11/13/22 History 3.75 mg-45 mg-45 mg-49.5 mg tablet ER (Theralith XR) Physical Exam Vital Signs and Narrative: Vital Signs: Last Vital Signs Temp 97.9 F 11/13/22 15:08 Pulse 42 L 11/13/22 15:08 Resp 14 11/13/22 15:08 BP 187/91 H 11/13/22 15:08 Pulse Ox 96 11/13/22 15:08 O2 Del Method Room Air 11/13/22 15:08 BMI result Body Mass Index 27.5 Constitutional: Alert, in no acute distress. Mental Status: Oriented to person, place and time. Eyes: Pupils are equal, round, and reactive to light. Ear, Nose, and Throat: Oropharynx clear, mucous membranes moist. Ears and nose without deformities. Trachea midline. Respiratory: Clear to auscultation bilaterally. No wheezing, rales, or rhonchi. Cardiovascular: S1, S2, bradycardic. No murmurs, rubs, or gallops. Gastrointestinal: Abdomen soft, non-tender, non-distended. Normal bowel sounds. Neurologic: Cranial nerves II-XII are grossly intact bilaterally. No focal neurological deficits. Moves all extremities spontaneously. Skin: No rashes or lesions noted. Musculoskeletal: No cyanosis or clubbing. Extremities: No edema. Psychiatric: Normal mood and affect. Results Labs 11/13/22 11:45 11/13/22 11:45 Labs: Laboratory Results - last 24 hr 11/13/22 11/13/22 11/13/22 11:45 11:45 11:45 MCV 96.1 MCH 32.8 MCHC 34.1 RDW 12.8 Plt Count 209 MPV 10.2 Immature Gran % (Auto) 0.2 Neut % (Auto) 63.5 Lymph % (Auto) 20.4 [place] % (Auto) 9.6 Eos % (Auto) 5.0 H Baso % (Auto) 1.3 Lymph # (Auto) 1.1 L [place] # (Auto) 0.5 Eos # (Auto) 0.3 Baso # (Auto) 0.1 Abs Immat Gran (auto) 0.01 Absolute Neuts (auto) 3.3 Absolute Nucleated RBC 0.000 Nucleated RBC % (auto) 0.0 Anion Gap 12 Estim Creat Clear Calc 48.0 Estimated GFR > 60 Random Glucose 84 Calcium 10.1 Magnesium 2.2 Total Bilirubin 0.6 AST 31 ALT 22 Alkaline Phosphatase 56 Total Protein 8.0 Albumin 4.3 Lipase Urine Color Urine Appearance Urine pH Ur Specific [place] Urine Protein Urine Glucose (UA) Urine Ketones Urine Blood Urine Nitrite Ur Leukocyte Esterase Urine RBC Urine WBC Ur Squamous Epith Cells Urine Bacteria Hyaline Casts COVID-19 (ISABELA) Negative COVID-19 Clin Com See Note 11/13/22 11/13/22 12:57 15:14 MCV MCH MCHC RDW Plt Count MPV Immature Gran % (Auto) Neut % (Auto) Lymph % (Auto) [place] % (Auto) Eos % (Auto) Baso % (Auto) Lymph # (Auto) [place] # (Auto) Eos # (Auto) Baso # (Auto) Abs Immat Gran (auto) Absolute Neuts (auto) Absolute Nucleated RBC Nucleated RBC % (auto) Anion Gap Estim Creat Clear Calc Estimated GFR Random Glucose Calcium Magnesium 2.3 Total Bilirubin AST ALT Alkaline Phosphatase Total Protein Albumin Lipase 32 Urine Color Yellow Urine Appearance Cloudy Urine pH 7.0 Ur Specific [place] 1.020 Urine Protein 30 (1+) H Urine Glucose (UA) Negative Urine Ketones Negative Urine Blood Negative Urine Nitrite Negative Ur Leukocyte Esterase Negative Urine RBC 0-2 Urine WBC 0-5 Ur Squamous Epith Cells 0-2 Urine Bacteria None Seen Hyaline Casts 0-2 COVID-19 (ISABELA) COVID-19 Clin Com Imaging Radiologist's Impressions: Impressions Chest X-Ray 11/13/22 13:27 IMPRESSION: Clear lungs. Assessment and Plan (1) Bradycardia: Status: Acute Plan Pt is an 87-year-old male with a PMH significant for?HLD, HTN, hiatal hernia, and kidney stones who presents to the ED for evaluation of nausea, vomiting, diarrhea x4 days. Patient and his family were camping in [place] this past week when patient says he began to develop nausea, vomiting, dizziness, chills, and diarrhea on Wednesday night. Pt will be admitted to the hospital under observation for monitoring of symptomatic bradycardia. Bradycardia Pt with HR in the 30s, rebounded to 60s with ambulation Symptomatic bradycardia verses incidental finding Patient noted to be very active, continues to cut all the wood to heat his and his sons' home Patient does not wear a HR monitor, last measured here at 54-55 during colonoscopy in 03/2021 Lightheadedness and dizziness may be secondary to viral illness, see below Pacer pads in place Hold atenolol Cardiology consult Monitor on telemetry N/V/D Viral gastroenteritis vs tick-borne disease Patient clinically feeling much better, no diarrhea or vomiting since last night Patient received IVF in ED, will continue to treat symptomatically Will check Lyme and tick-borne panel, GI panel, and C diff Testing for EEE or West Nile virus not indicated given patient's symptoms HTN Will hold atenolol given bradycardia Will start on amlodipine 5 mg q.d. HLD Continue statin Full Code Attending:?Dr. Zamarripa DVT Prophylaxis: Lovenox Patient admitted to the hospital under observation on telemetry for further evaluation and monitoring of symptomatic bradycardia. Time Spent With Patient Time: Total time managing care of this patient today ____ minutes. Quality Stroke Does the patient have a stroke diagnosis?: No VTE Prior VTE?: No VTE Risk Level:: Medical - moderate - high VTE Device Contraindication: Treatment Not Indicated VTE Drug Contraindication: N/A - Med Ordered
--- NOTE | 2022-11-13 19:18 | PHA.MEDREC ---
Pharmacy Consult ? Medication Reconciliation Pharmacy has completed the medication reconciliation. Pt and spouse at bedside were able to list names of medications and doses taken with no leading.
[2022-11-13] MEDS: amLODIPine Besylate 5 MG TABLET PO (22:03)
[2022-11-13] MEDS: Enoxaparin Sodium 40 MG/0.4 ML SYRINGE SUBCUT (22:03)
--- NOTE | 2022-11-13 22:04 | PC.NURSE ---
This RN assumed care at 1500. Patient alert and oriented and aymptomatic. VS charted per MAR. Patient attached to defib pads during entirety of care, remains asymptomatic, calm, alert, oriented, and pleasant. Will continue to monitor
[2022-11-14 02:08] VITALS: BP 192/96; PULSE 50; RESP 16; TEMP 36.1; O2SAT 96
[2022-11-14] MEDS: hydrALAZINE HCl 20 MG/ML VIAL 5 MG IVPUSH (02:17)
[2022-11-14 02:21] VITALS: BMI 27.8
[2022-11-14 03:09] VITALS: BP 158/77; PULSE 55; RESP 15; TEMP 36.1; O2SAT 95
[2022-11-14 07:29] VITALS: BP 170/60; PULSE 49; RESP 18; TEMP 36.4; O2SAT 100
[2022-11-14] MEDS: 0.9 % Sodium Chloride Flush 3 ML SYRINGE IVFLUSH (08:40)
[2022-11-14] MEDS: amLODIPine Besylate 5 MG TABLET PO (08:40)
[2022-11-14] MEDS: Pravastatin Sodium 40 MG TABLET PO (08:40)
[2022-11-14] MEDS: Multivitamin TABLET 1 TAB PO (08:40)
[2022-11-14 09:24] LABS: Thyroid Stimulating Hormone 58.87 uIU/mL (0.32-4.0)
--- NOTE | 2022-11-14 09:52 | P.CONCA_ITS ---
History of Present Illness History of Present Illness Date of Service: 11/14/22 Chief complaint: symptomatic bradycardia Narrative: [age] year gentleman who I have been asked to assess for bradycardia. He does not have symptomatic bradycardia. He came with bradycardia and had signi ficantly elevated blood pressures. He recently had some mosquito bites and subsequently had GI upset and nausea and vomiting. He said he started feeling dizzy and felt very fuzzy in his head. With these symptoms he presented to [facility]. Blood pressures were as high as 203 / 95. He has been taking atenolol 50 mg daily. His heart rates were slow in 40s. With ambulation in the ER his heart rate went up to 60s. Is feeling little better today blood pressure is still elevated. 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 of [place] Hx of arthroscopy Hx of cholecystectomy Hx of colonoscopy Hx of inguinal hernia repair Hx of knee surgery Social History Social History Alcohol intake: current Alcohol intake frequency: holidays/special occasions only Patient Tobacco Use Status: Never used Tobacco Smoked in Last 30 Days: No Use of substances other than those prescribed or required for medical reasons: No Advance Directives: No Advance Directives Information Provided: No Meds Allergies Allergy/AdvReac Type Severity Reaction Status Date / Time Iodinated Contrast Media AdvReac Severe ALTERED Verified 11/13/22 11:55 [IV Dye, Iodine Containing] MENTAL STATUS Active Medications: Current Medications Acetaminophen (Acetaminophen 325 Mg Tablet) 650 mg PO Q6H PRN PRN Reason: Pain, Mild (Pain Scale 1-3) Amlodipine Besylate (Amlodipine Besylate 5 Mg Tablet) 5 mg PO DAILY DARCI; Protocol Last Admin: 11/14/22 08:40 Dose: 5 mg Docusate Sodium (Docusate Sodium 100 Mg Capsule) 100 mg PO DAILY PRN PRN Reason: Constipation Enoxaparin Sodium (Enoxaparin Sodium 40 Mg/0.4 Ml Syringe) 40 mg SUBCUT Q24H [facility] Last Admin: 11/13/22 22:03 Dose: 40 mg Multivitamins/Vitamin C (Multivitamin Tablet) 1 tab PO DAILY [facility] Last Admin: 11/14/22 08:40 Dose: 1 tab Ondansetron HCl (Ondansetron Hcl 4 Mg/2 Ml Vial) 4 mg IVPUSH Q8H PRN PRN Reason: Nausea and Vomiting Pharmacy Consult (Consult Rx Perform Med Rec) 1 each MISCELLANE ONCE PRN PRN Reason: Consult order Pravastatin Sodium (Pravastatin Sodium 40 Mg Tablet) 40 mg PO BID [facility] Last Admin: 11/14/22 08:40 Dose: 40 mg Sodium Chloride (0.9 % Sodium Chloride Flush 3 Ml Syringe) 3 ml IVFLUSH QSHIFT [facility] Last Admin: 11/14/22 08:40 Dose: 3 ml Home Medications Medication Instructions Recorded Confirmed Last Taken Type atenolol 50 mg tablet 50 mg PO DAILY 02/24/21 11/13/22 11/13/22 History pravastatin 40 mg tablet 40 mg PO BID 02/24/21 11/13/22 11/13/22 History multivitamin-ferrous 1 tab PO DAILY 11/13/22 11/13/22 11/13/22 History fumarate-folic acid 18 mg-400 mcg tablet vit B6-mag cit,ox-potassium cit 2 tab PO BID 11/13/22 11/13/22 11/13/22 History 3.75 mg-45 mg-45 mg-49.5 mg tablet ER (Therali XR) Physical Exam Vital Signs: Vital Signs: Last Vital Signs Temp 97.6 F 11/14/22 07:29 Pulse 49 L 11/14/22 07:29 Resp 18 11/14/22 07:29 BP 170/60 H 11/14/22 07:29 Pulse Ox 100 11/14/22 07:29 O2 Del Method Room Air 11/14/22 07:29 BMI result Body Mass Index 27.8 GENERAL APPEARANCE: in no acute distress, pleasant. NECK: no carotid bruit, no jugular venous distention. SKIN: no suspicious lesions, warm and dry. HEART: no murmurs, regular rate and rhythm. Bradycardic. LUNGS: clear to auscultation bilaterally. ABDOMEN: soft, nontender. EXTREMITIES: no edema. PERIPHERAL PULSES: equal. NEUROLOGIC: No gross deficits, AAO X 3 Objective Labs and Meds 11/13/22 11:45 11/13/22 11:45 Lab results: Laboratory Results - last 24 hr 11/13/22 11/13/22 11/13/22 11:45 11:45 11:45 WBC 5.2 RBC 4.61 Hgb 15.1 Hct 44.3 MCV 96.1 MCH 32.8 MCHC 34.1 RDW 12.8 Plt Count 209 MPV 10.2 Immature Gran % (Auto) 0.2 Neut % (Auto) 63.5 Lymph % (Auto) 20.4 [place] % (Auto) 9.6 Eos % (Auto) 5.0 H Baso % (Auto) 1.3 Lymph # (Auto) 1.1 L [place] # (Auto) 0.5 Eos # (Auto) 0.3 Baso # (Auto) 0.1 Abs Immat Gran (auto) 0.01 Absolute Neuts (auto) 3.3 Absolute Nucleated RBC 0.000 Nucleated RBC % (auto) 0.0 Sodium 141 Potassium 4.2 Chloride 107 Carbon Dioxide 26 Anion Gap 12 BUN 15 Creatinine 1.08 Estim Creat Clear Calc 48.0 Estimated GFR > 60 Random Glucose 84 Calcium 10.1 Magnesium 2.2 Total Bilirubin 0.6 AST 31 ALT 22 Alkaline Phosphatase 56 Troponin I High Sens Total Protein 8.0 Albumin 4.3 Lipase TSH Urine Color Urine Appearance Urine pH Ur Specific [place] Urine Protein Urine Glucose (UA) Urine Ketones Urine Blood Urine Nitrite Ur Leukocyte Esterase Urine RBC Urine WBC Ur Squamous Epith Cells Urine Bacteria Hyaline Casts COVID-19 ([facility]A) Negative COVID-19 Clin Com See Note 11/13/22 11/13/22 11/13/22 12:57 12:57 15:14 WBC RBC Hgb Hct MCV MCH MCHC RDW Plt Count MPV Immature Gran % (Auto) Neut % (Auto) Lymph % (Auto) [place] % (Auto) Eos % (Auto) Baso % (Auto) Lymph # (Auto) [place] # (Auto) Eos # (Auto) Baso # (Auto) Abs Immat Gran (auto) Absolute Neuts (auto) Absolute Nucleated RBC Nucleated RBC % (auto) Sodium Potassium Chloride Carbon Dioxide Anion Gap BUN Creatinine Estim Creat Clear Calc Estimated GFR Random Glucose Calcium Magnesium 2.3 Total Bilirubin AST ALT Alkaline Phosphatase Troponin I High Sens 4.9 Total Protein Albumin Lipase 32 TSH Urine Color Yellow Urine Appearance Cloudy Urine pH 7.0 Ur Specific [place] 1.020 Urine Protein 30 (1+) H Urine Glucose (UA) Negative Urine Ketones Negative Urine Blood Negative Urine Nitrite Negative Ur Leukocyte Esterase Negative Urine RBC 0-2 Urine WBC 0-5 Ur Squamous Epith Cells 0-2 Urine Bacteria None Seen Hyaline Casts 0-2 COVID-19 (IS[facility]ELA) COVID-19 Clin Com 11/14/22 08:13 WBC RBC Hgb Hct MCV MCH MCHC RDW Plt Count MPV Immature Gran % (Auto) Neut % (Auto) Lymph % (Auto) [place] % (Auto) Eos % (Auto) Baso % (Auto) Lymph # (Auto) [place] # (Auto) Eos # (Auto) Baso # (Auto) Abs Immat Gran (auto) Absolute Neuts (auto) Absolute Nucleated RBC Nucleated RBC % (auto) Sodium Potassium Chloride Carbon Dioxide Anion Gap BUN Creatinine Estim Creat Clear Calc Estimated GFR Random Glucose Calcium Magnesium Total Bilirubin AST ALT Alkaline Phosphatase Troponin I High Sens Total Protein Albumin Lipase TSH 58.87 H Urine Color Urine Appearance Urine pH Ur Specific [place] Urine Protein Urine Glucose (UA) Urine Ketones Urine Blood Urine Nitrite Ur Leukocyte Esterase Urine RBC Urine WBC Ur Squamous Epith Cells Urine Bacteria Hyaline Casts COVID-19 ([facility]A) COVID-19 Clin Com Imaging Radiologist's impression: Impressions Chest X-Ray 11/13/22 13:27 IMPRESSION: Clear lungs. Assessment and Plan (1) Bradycardia: Status: Acute (2) Dizziness: Status: Acute Plan [age] year gentleman with bradycardia and significantly elevated blood pressures. Bradycardia is not causing any symptoms and due to atenolol. Atenolol can be discontinued. Amlodipine can be titrated 10 mg. Please avoid IV hydralazine in these old pressures because the blood pressure effect is quite unpredictable and can lead to significant cardiovascular complications. He blood pressures improved below 150s then he can be discharged home and can have further titration blood pressures as outpatient. Some of his 1st sinus/dizziness can be due to elevated blood pressures too. Thank you for allowing me to participate in the care of your patient. Please feel free to contact me if you have any questions. Time Spent With Patient Time: Total time managing care of this patient today ____ minutes. Procedures Date of Service Date of Service: 11/14/22
--- NOTE | 2022-11-14 10:49 | MHC.CM.PN ---
MD order for home, self care prior to CM interview. CM acknowledge.
[2022-11-14 11:00] VITALS: BP 165/80; PULSE 53; RESP 18; TEMP 36; O2SAT 97
--- NOTE | 2022-11-14 11:20 | PM.DS ---
DS: Providers Provider Date of Service: 11/14/22 Date of admission: 11/13/22 20:00 Primary care physician: Ronni Valle MD Consults: 11/14/22 07:40 Consult to Cardiology Routine Consulting Provider: [facility] Reason for consultation: symptomatic bradycardia Has provider been notified: No Attending physician on discharge: Usha Tiwari Discharging clinician: Usha Tiwari DS: Diagnosis Discharge Diagnosis (1) Bradycardia: Status: Acute (2) Dizziness: Status: Acute DS: Summary Hospital Course Hospital Course: 87-year-old male with a PMH significant for?HLD, HTN, hiatal hernia, and kidney stones who presents to the ED for evaluation of nausea, vomiting, diarrhea x4 days.? Patient and his family were camping in [place] this past week when patient says he began to develop nausea, vomiting, dizziness, chills, and diarrhea on Wednesday night.? On Wednesday patient says he felt ?fuzzy? and dizzy but did not vomit, continued to have diarrhea.? States he also had a rash developed on his right lower chest that has since resolved. On continued with diarrhea, lightheadedness, and dizziness, and nausea and vomiting returned. Decided to go to an urgent care in the morning. At urgent care pt was found to have a HR in the 30s and was sent to the ED for further evaluation. In ED patient's heart rate again dropped as low as the 30s, but increased to 62 when he ambulated with heart rate monitor on.? At time of interview patient states he was feeling much better.? Last episode of vomiting and diarrhea was the night prior.? Denies fever, headache.? No confusion.? No chest pain/pressure, palpitations.? Denies shortness of breath.? Currently denies any lightheadedness or dizziness.? Of note, patient continues to lead a very active lifestyle, especially for his age.? 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 Pt does not wear a heart rate monitor and is unaware of what his baseline resting HR is. Record review shows his HR was 54-55 during a colonoscopy in 03/2021. In the ED patient was bradycardic as low as 40 and hypertensive as high as 203/95, satting 98% on RA. Labs were grossly unremarkable.? Stable H&H.? Electrolytes WNL.? Hepatic function, renal function WNL. CXR showed clear lungs. EKG demonstrated sinus bradycardia of 38 with no evidence of ST elevations or depressions. Pt was treated with IVF. Pt will be admitted to the hospital under observation for monitoring of symptomatic bradycardia. Hospitalcourse: Patient was admitted for bradycardia : possible related to atenolol and ?hypothyroidism -atenolol stopped . free t3 and t4 added . Heart rate is now improved to 50s, patient is asymptomatic. Patient will go home with levothyroxine-Possible primary hypothyroidism: d/w endocrinology Dr clark -added levothyroxine ,free t4 and thyriod peroxidae antibody ordered -Need to follow up with Dr. Valle to repeat TSH, free T4 and review peroxidase antibody results. uncontrolled htn -added amlodipine. nausea,vomiting ,diarrahae improved-lyme and tick borne disease serologies need to follow up outpatient. Above management discussed with the patient in detail length she understand and in agreement with the above plan, time spent 50 minutes and 50% time spent on counseling. Time Spent with Patient Time attestation: Total time managing care of this patient today ____ minutes. Discharge coordination time: Greater than 30 minutes Quality: Safe Use of Opioids Does Pt have an Active Cancer Diagnosis on the Problem List?: No Quality: Stroke Does the patient have a stroke diagnosis?: No Physical Exam Vital Signs: Vital Signs: Last Vital Signs Temp 96.8 F 11/14/22 11:00 Pulse 53 11/14/22 11:00 Resp 18 11/14/22 11:00 BP 165/80 H 11/14/22 11:00 Pulse Ox 97 11/14/22 11:00 O2 Del Method Room Air 11/14/22 11:00 BMI result Body Mass Index 27.8 Appearance: Alert.? Oriented X3.? not in distress.? cvs: rrr, [id number] . res: clear to auscultation ,no rhonchii or wheezing abd: no rebound or guarding ,nt, bs present. ext pulses present , no cyanosis. neuro: axo3 , nonfocal. DS: Data Data Completed and Pending Labs on day of discharge: Laboratory Results - last 24 hr 11/13/22 11/13/22 11/13/22 11:45 11:45 11:45 WBC 5.2 RBC 4.61 Hgb 15.1 Hct 44.3 MCV 96.1 MCH 32.8 MCHC 34.1 RDW 12.8 Plt Count 209 MPV 10.2 Immature Gran % (Auto) 0.2 Neut % (Auto) 63.5 Lymph % (Auto) 20.4 [place] % (Auto) 9.6 Eos % (Auto) 5.0 H Baso % (Auto) 1.3 Lymph # (Auto) 1.1 L [place] # (Auto) 0.5 Eos # (Auto) 0.3 Baso # (Auto) 0.1 Abs Immat Gran (auto) 0.01 Absolute Neuts (auto) 3.3 Absolute Nucleated RBC 0.000 Nucleated RBC % (auto) 0.0 Sodium 141 Potassium 4.2 Chloride 107 Carbon Dioxide 26 Anion Gap 12 BUN 15 Creatinine 1.08 Estim Creat Clear Calc 48.0 Estimated GFR > 60 Random Glucose 84 Calcium 10.1 Magnesium 2.2 Total Bilirubin 0.6 AST 31 ALT 22 Alkaline Phosphatase 56 Troponin I High Sens Total Protein 8.0 Albumin 4.3 Lipase TSH Urine Color Urine Appearance Urine pH Ur Specific [place] Urine Protein Urine Glucose (UA) Urine Ketones Urine Blood Urine Nitrite Ur Leukocyte Esterase Urine RBC Urine WBC Ur Squamous Epith Cells Urine Bacteria Hyaline Casts COVID-19 (ISABELA) Negative COVID-19 Clin Com See Note 11/13/22 11/13/22 11/13/22 12:57 12:57 15:14 WBC RBC Hgb Hct MCV MCH MCHC RDW Plt Count MPV Immature Gran % (Auto) Neut % (Auto) Lymph % (Auto) [place] % (Auto) Eos % (Auto) Baso % (Auto) Lymph # (Auto) [place] # (Auto) Eos # (Auto) Baso # (Auto) Abs Immat Gran (auto) Absolute Neuts (auto) Absolute Nucleated RBC Nucleated RBC % (auto) Sodium Potassium Chloride Carbon Dioxide Anion Gap BUN Creatinine Estim Creat Clear Calc Estimated GFR Random Glucose Calcium Magnesium 2.3 Total Bilirubin AST ALT Alkaline Phosphatase Troponin I High Sens 4.9 Total Protein Albumin Lipase 32 TSH Urine Color Yellow Urine Appearance Cloudy Urine pH 7.0 Ur Specific [place] 1.020 Urine Protein 30 (1+) H Urine Glucose (UA) Negative Urine Ketones Negative Urine Blood Negative Urine Nitrite Negative Ur Leukocyte Esterase Negative Urine RBC 0-2 Urine WBC 0-5 Ur Squamous Epith Cells 0-2 Urine Bacteria None Seen Hyaline Casts 0-2 COVID-19 ([facility]ELA) COVID-19 Clin Com 11/14/22 08:13 WBC RBC Hgb Hct MCV MCH MCHC RDW Plt Count MPV Immature Gran % (Auto) Neut % (Auto) Lymph % (Auto) [place] % (Auto) Eos % (Auto) Baso % (Auto) Lymph # (Auto) [place] # (Auto) Eos # (Auto) Baso # (Auto) Abs Immat Gran (auto) Absolute Neuts (auto) Absolute Nucleated RBC Nucleated RBC % (auto) Sodium Potassium Chloride Carbon Dioxide Anion Gap BUN Creatinine Estim Creat Clear Calc Estimated GFR Random Glucose Calcium Magnesium Total Bilirubin AST ALT Alkaline Phosphatase Troponin I High Sens Total Protein Albumin Lipase TSH 58.87 H Urine Color Urine Appearance Urine pH Ur Specific [place] Urine Protein Urine Glucose (UA) Urine Ketones Urine Blood Urine Nitrite Ur Leukocyte Esterase Urine RBC Urine WBC Ur Squamous Epith Cells Urine Bacteria Hyaline Casts COVID-19 ([facility]ELA) COVID-19 Clin Com Imaging Chest x-ray: Radiologist's impression: ITS Impressions Chest X-Ray 11/13/22 13:27 IMPRESSION: Clear lungs. Discharge Plan Discharge Anticipated Discharge Date/Time: 11/14/22 10:34 Patient Disposition: Home, Self-Care Discharge Diagnosis: htn, bradycardia ,Possible primary hypothyroidism Referrals: [facility] [Provider Group] Ronni Valle MD [Primary Care Provider] - 1 Week Discharge Medications: New amlodipine [Norvasc] 10 mg tablet 10 mg PO DAILY Qty: 30 0RF levothyroxine 50 mcg capsule 50 mcg PO DAILY Qty: 30 0RF Continued [id number] acid 18-400 mg-mcg Tablet 1 tab PO DAILY Theralith XR 3.75-45-45-49.5 mg Tablet Extended Release 2 tab PO BID pravastatin 40 mg tablet 40 mg PO BID Discontinued atenolol 50 mg tablet 50 mg PO DAILY Discharge Orders: Discharge Order (Routine); Ordered 11/14/22 Ordered By: Usha Tiwari Diet: Advance to usual diet Activity on Discharge: As tolerated Stand Alone Forms: Patient Portal Discharge page Care Plan Goals: uncontrolled htn -added amlodipine. bradycardia : possible related to atenolol and ?hypothyroidism -atenolol stopped . free t3 and t4 added . nausea,vomiting improved-lyme and tick borne disease serologies need to follow up outpatient. Possible primary hypothyroidism: d/w endocrinology Dr clark -added levothyroxine ,free t4 and thyriod peroxidae antibody ordered -Need to follow up with Dr. Valle to repeat TSH, free T4 and review peroxidase antibody results. Health Concerns: as above. Plan of Treatment: as above. Assessment: as above. Patient Instructions: Bradycardia (ED)
[2022-11-14] MEDS: Levothyroxine Sodium 50 MCG TABLET PO (11:33)
[2022-11-14] MEDS: amLODIPine Besylate 2.5 MG TABLET PO (11:33)
[2022-11-14 12:06] LABS: Free T4 (Free Thyroxine) < 0.42 ng/dL (0.71-1.85)
[2022-11-16 13:28] LABS: Thyroid Peroxidase Antibodies 46 IU/mL (<9)
[2022-11-16 21:23] LABS: Lyme Blot 9.72 index
[2022-11-16 22:24] LABS: A. Phagocytphilium DNA,RT-PCR NOT DETECTED (NOT DETECTED); Babesia Microti DNA, RT-PCR NOT DETECTED (NOT DETECTED); Borrelia Miyamotoi,DNA RT-PCR NOT DETECTED (NOT DETECTED); E.Chaffeensis DNA RT-PCR NOT DETECTED (NOT DETECTED); Lyme(Borrelia ssp)DNA RT-PCR NOT DETECTED (NOT DETECTED)
[2022-11-17 16:16] LABS: Lyme Abs Screen POSITIVE
[2022-11-17 23:23] LABS: 18 KD (IgG) Band REACTIVE; 23 KD (IgG) Band NON-REACTIVE; 23 KD (IgM) Band NON-REACTIVE; 28 KD (IgG) Band REACTIVE; 30 KD (IgG) Band REACTIVE; 39 KD (IgM) Band NON-REACTIVE; 39KD (IgG) Band REACTIVE; 41 KD (IgM) Band NON-REACTIVE; 41KD (IgG) Band REACTIVE; 45 KD (IgG) Band NON-REACTIVE; 58 KD (IgG) Band REACTIVE; 66 KD (IgG) Band REACTIVE; 93 KD (IgG) Band REACTIVE; Lyme IgG Blot Interp POSITIVE (NEGATIVE); Lyme IgM Blot Interp NEGATIVE (NEGATIVE)
== END 2022-11-14 13:07 | disposition home or self-care (01) ==
LOC: HO.ED 16:48 → HO.EDOVER 20:12 → HO.IMC 11-14 01:07
PROVIDERS: Physician Assistant; Admitting Provider Student in an Organized Health Care Education/Training Program; Emergency Provider Emergency Medicine Emergency Medical Services; PCP Internal Medicine; Visit Provider Internal Medicine
DX: R00.1 Bradycardia, unspecified (principal); R42 Dizziness and giddiness; R11.2 Nausea with vomiting, unspecified; R19.7 Diarrhea, unspecified; R07.9 Chest pain, unspecified; T14.8XXA Other injury of unspecified body region, initial encounter; W57.XXXA Bitten or stung by nonvenomous insect and other nonvenomous arthropods, initial encounter; I10 Essential (primary) hypertension; E78.5 Hyperlipidemia, unspecified; Z20.822 Contact with and (suspected) exposure to COVID-19; Z79.899 Other long term (current) drug therapy
CPT/HCPCS: 36415; 71045; 80053; 81001; 83690; 83735; 84439; 84443; 84484; 85025; 86376; 86617; 86618; 87635; 87798; 87801; 93005; 96372; 96374; 99222; 99285; J1650

== ENCOUNTER → 2022-11-13 11:30 | Outpatient (BNV) | payer MEDICARE, SELFPAY | PROVIDERS: Admitting Provider Student in an Organized Health Care Education/Training Program; Emergency Provider Emergency Medicine Emergency Medical Services; PCP Internal Medicine; Visit Provider Internal Medicine Cardiovascular Disease | DX: R00.1 Bradycardia, unspecified (principal); R94.31 Abnormal electrocardiogram [ECG] [EKG] | CPT/HCPCS: 93010 ==

== ENCOUNTER → 2022-11-13 20:00 | Outpatient (BNV) | payer MEDICARE, SELFPAY | PROVIDERS: Admitting Provider Student in an Organized Health Care Education/Training Program; Emergency Provider Emergency Medicine Emergency Medical Services; PCP Internal Medicine; Visit Provider Internal Medicine Cardiovascular Disease | DX: R00.1 Bradycardia, unspecified (principal); R42 Dizziness and giddiness | CPT/HCPCS: 99222 ==

== ENCOUNTER → 2022-11-13 20:00 | Outpatient (BNV) | payer MEDICARE, SELFPAY | PROVIDERS: Admitting Provider Student in an Organized Health Care Education/Training Program; Emergency Provider Emergency Medicine Emergency Medical Services; PCP Internal Medicine; Visit Provider Internal Medicine | DX: R00.1 Bradycardia, unspecified (principal); R42 Dizziness and giddiness | CPT/HCPCS: 99222; 99239 ==

== ENCOUNTER 2022-12-29 07:24 | Outpatient (REF) | payer MEDICARE, SELFPAY ==
[2022-12-29 08:31] LABS: Alanine Aminotransferase 19 U/L (0-40); Albumin Level 4.3 g/dL (3.5-5.0); Alkaline Phosphatase 75 U/L (39-117); Anion Gap 13 (12-20); Aspartate Amino Transferase 28 U/L (5-37); Bilirubin Total 0.5 mg/dL (0.0-1.0); Blood Urea Nitrogen 20 mg/dL (9-16); Calcium 9.6 mg/dL (8.4-10.2); Carbon Dioxide 24 mmol/L (22-29); Chloride 108 mmol/L (96-108); Estimated Glomerular Filt Rate 59; Glucose Random 89 mg/dL (60-115); Potassium 3.8 mmol/L (3.3-5.1); Sodium 141 mmol/L (135-145)
[2022-12-29 08:48] LABS: Free T4 (Free Thyroxine) 0.69 ng/dL (0.71-1.85); Thyroid Stimulating Hormone 17.43 uIU/mL (0.32-4.0)
== END 2022-12-29 07:25 | disposition home or self-care (01) ==
LOC: HO.LAB 07:24
PROVIDERS: PCP Internal Medicine; Visit Provider Internal Medicine
DX: I12.9 Hypertensive chronic kidney disease with stage 1 through stage 4 chronic kidney disease, or unspecified chronic kidney disease (principal); N18.9 Chronic kidney disease, unspecified; E03.9 Hypothyroidism, unspecified
CPT/HCPCS: 36415; 80053; 84439; 84443

== ENCOUNTER 2023-02-12 07:44 | Outpatient (REF) | payer MEDICARE, SELFPAY ==
[2023-02-12 11:46] LABS: Free T4 (Free Thyroxine) 1.04 ng/dL (0.71-1.85); Thyroid Stimulating Hormone 0.43 uIU/mL (0.32-4.0)
== END 2023-02-12 07:45 | disposition home or self-care (01) ==
LOC: HO.10HDL 07:44
PROVIDERS: Visit Provider Internal Medicine
DX: E03.9 Hypothyroidism, unspecified (principal)
CPT/HCPCS: 36415; 84439; 84443

== ENCOUNTER 2024-01-28 14:58 | Outpatient (REF) | payer MEDICARE, SELFPAY ==
[2024-01-28 15:20] LABS: MANUAL DIFF FLAG NO
[2024-01-28 15:31] LABS: Basophils Absolute Auto 0.1 X10*3/uL (0.0-0.2); Eosinophils Absolute Auto 0.1 X10*3/uL (0.0-0.4); Eosinophils Percent Auto 2.3 % (0-4); Hematocrit 42.4 % (42.0-52.0); Hemoglobin 14.4 g/dl (14.0-18.0); Imm Gran Abs Auto 0.01 X10*3/uL (0.00-0.03); Imm Gran Pct Auto 0.2 % (0.0-0.4); Lymphocytes Percent Auto 20.7 % (20-40); Mean Corpuscular Hemoglobin 31.4 pg (27.0-33.0); Mean Corpuscular Volume 92.6 fL (80.0-98.0); Mean Platelet Volume 9.9 fL (9.4-12.4); Monocytes Absolute Auto 0.7 X10*3/uL (0.1-1.2); Monocytes Percent Auto 14.6 % (2-11); Neutrophils Absolute Auto 2.9 x10*3/uL (2.0-8.3); Neutrophils Percent Auto 61.2 % (45-73); Platelet Count 205 X10*3/uL (160-400); Red Blood Count 4.58 X10*6/uL (4.60-5.80); Red Cell Distribution Width 12.9 % (11.0-16.0); White Blood Count 4.8 X10*3/uL (4.8-10.8)
[2024-01-28 15:59] LABS: Alanine Aminotransferase 28 U/L (0-40); Albumin Level 4.4 g/dL (3.5-5.0); Alkaline Phosphatase 78 U/L (39-117); Anion Gap 11 (12-20); Aspartate Amino Transferase 37 U/L (5-37); Bilirubin Total 0.7 mg/dL (0.0-1.0); Blood Urea Nitrogen 17 mg/dL (9-16); Calcium 9.8 mg/dL (8.4-10.2); Carbon Dioxide 26 mmol/L (22-29); Chloride 107 mmol/L (96-108); Cholesterol 156 mg/dL (<200); Estimated Glomerular Filt Rate 58; Glucose Random 87 mg/dL (60-115); HDL Cholesterol 47 mg/dL (>40); LDL Cholesterol Calculated 97 mg/dL (<100); Potassium 4.3 mmol/L (3.3-5.1); Sodium 140 mmol/L (135-145); Total Protein 8.1 g/dL (6.5-8.0); Triglycerides 63 mg/dL (<150)
[2024-01-28 16:13] LABS: Thyroid Stimulating Hormone 0.12 uIU/mL (0.32-4.0)
== END 2024-01-28 14:59 | disposition home or self-care (01) ==
LOC: HO.LAB 14:58
PROVIDERS: PCP Internal Medicine; Visit Provider Internal Medicine
DX: I10 Essential (primary) hypertension (principal); E78.00 Pure hypercholesterolemia, unspecified; E03.9 Hypothyroidism, unspecified
CPT/HCPCS: 36415; 80053; 80061; 84439; 84443; 85025

== ENCOUNTER 2024-07-14 14:11 | Outpatient (AMB) | payer MEDICARE, SELFPAY ==
[2024-07-14 14:15] VITALS: BP 130/80; PULSE 78; O2SAT 99; BMI 26.3
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
== END 2024-07-14 15:05 | disposition home or self-care (01) ==
LOC: HO.HMCHD 14:11
PROVIDERS: PCP Internal Medicine; Visit Provider Internal Medicine
DX: K40.21 Bilateral inguinal hernia, without obstruction or gangrene, recurrent (principal); E03.9 Hypothyroidism, unspecified; Z85.46 Personal history of malignant neoplasm of prostate; R42 Dizziness and giddiness

== ENCOUNTER 2024-07-14 14:11 | Outpatient (REF) | payer MEDICARE, SELFPAY ==
[2024-07-14 15:24] LABS: MANUAL DIFF FLAG NO
[2024-07-14 15:38] LABS: Basophils Absolute Auto 0.1 X10*3/uL (0.0-0.2); Basophils Percent Auto 1.4 % (0-2); Eosinophils Absolute Auto 0.4 X10*3/uL (0.0-0.4); Eosinophils Percent Auto 7.1 % (0-4); Hematocrit 43.4 % (42.0-52.0); Hemoglobin 14.8 g/dl (14.0-18.0); Imm Gran Abs Auto 0.02 X10*3/uL (0.00-0.03); Imm Gran Pct Auto 0.4 % (0.0-0.4); Lymphocytes Absolute Auto 1.1 X10*3/uL (1.2-4.9); Lymphocytes Percent Auto 18.8 % (20-40); Mean Corpuscular HGB Conc 34.1 g/dl (31.0-36.0); Mean Corpuscular Hemoglobin 31.4 pg (27.0-33.0); Mean Corpuscular Volume 91.9 fL (80.0-98.0); Mean Platelet Volume 9.9 fL (9.4-12.4); Monocytes Absolute Auto 0.6 X10*3/uL (0.1-1.2); Monocytes Percent Auto 10.4 % (2-11); Neutrophils Absolute Auto 3.5 x10*3/uL (2.0-8.3); Neutrophils Percent Auto 61.9 % (45-73); Platelet Count 260 X10*3/uL (160-400); Red Blood Count 4.72 X10*6/uL (4.60-5.80); Red Cell Distribution Width 12.3 % (11.0-16.0); White Blood Count 5.6 X10*3/uL (4.8-10.8)
[2024-07-14 16:09] LABS: Alanine Aminotransferase 33 U/L (0-40); Albumin Level 4.5 g/dL (3.5-5.0); Alkaline Phosphatase 88 U/L (39-117); Anion Gap 11 (12-20); Aspartate Amino Transferase 36 U/L (5-37); Bilirubin Total 0.5 mg/dL (0.0-1.0); Blood Urea Nitrogen 16 mg/dL (9-16); Calcium 9.6 mg/dL (8.4-10.2); Carbon Dioxide 25 mmol/L (22-29); Chloride 109 mmol/L (96-108); Estimated Glomerular Filt Rate > 60; Glucose Random 100 mg/dL (60-115); Potassium 3.8 mmol/L (3.3-5.1); Sodium 141 mmol/L (135-145); Total Protein 8.1 g/dL (6.5-8.0)
[2024-07-14 16:26] LABS: TSH reflex Free T4 0.15 uIU/mL (0.32-4.0)
[2024-07-14 17:06] LABS: Free T4 (Free Thyroxine) 1.17 ng/dL (0.71-1.85)
== END 2024-07-14 14:12 | disposition home or self-care (01) ==
LOC: HO.LAB 14:11
PROVIDERS: PCP Internal Medicine; Visit Provider Internal Medicine
DX: K40.21 Bilateral inguinal hernia, without obstruction or gangrene, recurrent (principal); E03.9 Hypothyroidism, unspecified; R42 Dizziness and giddiness; I10 Essential (primary) hypertension; E78.5 Hyperlipidemia, unspecified; Z85.46 Personal history of malignant neoplasm of prostate; Z79.899 Other long term (current) drug therapy
CPT/HCPCS: 36415; 80053; 84439; 84443; 85025; 96127; 99202

== ENCOUNTER 2024-07-29 09:43 | Outpatient (REF) | payer MEDICARE, SELFPAY ==
[2024-07-29 11:16] LABS: Alanine Aminotransferase 27 U/L (0-40); Albumin Level 4.1 g/dL (3.5-5.0); Alkaline Phosphatase 80 U/L (39-117); Anion Gap 10 (12-20); Aspartate Amino Transferase 33 U/L (5-37); Bilirubin Total 0.7 mg/dL (0.0-1.0); Blood Urea Nitrogen 18 mg/dL (9-16); Calcium 9.3 mg/dL (8.4-10.2); Carbon Dioxide 27 mmol/L (22-29); Chloride 107 mmol/L (96-108); Estimated Glomerular Filt Rate > 60; Glucose Random 86 mg/dL (60-115); Potassium 3.8 mmol/L (3.3-5.1); Sodium 140 mmol/L (135-145); Total Protein 7.4 g/dL (6.5-8.0)
[2024-08-02 21:53] LABS: PSA, Ultra Sensitive <0.02 ng/mL
== END 2024-07-29 09:44 | disposition home or self-care (01) ==
LOC: HO.LAB 09:43
PROVIDERS: PCP Internal Medicine; Visit Provider Internal Medicine
DX: E03.9 Hypothyroidism, unspecified (principal); Z85.46 Personal history of malignant neoplasm of prostate; Z98.890 Other specified postprocedural states; Z87.19 Personal history of other diseases of the digestive system; Z12.5 Encounter for screening for malignant neoplasm of prostate
CPT/HCPCS: 36415; 80053; 84153

== ENCOUNTER 2024-08-07 12:32 | Outpatient (REF) | payer MEDICARE, SELFPAY | END 2024-08-07 12:33 | disposition home or self-care (01) | LOC: HO.CT 12:32 | PROVIDERS: PCP Internal Medicine; Visit Provider Internal Medicine | DX: Z13.89 Encounter for screening for other disorder (principal) ==

== ENCOUNTER 2024-08-11 08:28 | Outpatient (REF) | payer MEDICARE, SELFPAY ==
--- NOTE | ~2024-08-11 | CT_ITS ---
CLINICAL HISTORY: Z98.890 - Other specified postprocedural states CT abdomen and pelvis with contrast Comparison: None Findings: The visualized portions of the lungs are normal in appearance. The liver is normal in size without suspicious focal hepatic lesions. Dilation of the CBD is likely secondary to cholecystectomy. The hepatic and portal veins are patent. Pancreas, spleen and adrenals are normal in appearance. No suspicious focal lesion of the kidneys. There are multiple cysts of the bilateral kidney. No hydronephrosis or calculi. The abdominal aorta demonstrates no evidence of aneurysmal dilatation or dissection. Atherosclerosis calcification of the aorta. The colon is without wall thickening or inflammatory change. Colonic diverticulosis. No evidence of bowel obstruction. Appendix is normal. There is artifact from the multiple surgical clips of the lower pelvis in the area of prostate gland. Bladder is unremarkable. No intraperitoneal free air or fluid is visualized. No pathologic lymphadenopathy is seen. Fat containing right inguinal hernia. There are no osseous or soft tissue abnormalities. IMPRESSION: No acute findings. Incidental findings as above. This document has been electronically signed by: Jarad Ibarra MD on 08/11/2024 16:10:35
[2024-08-11] MEDS: Barium Sulfate Oral (Mocha) 450 ML ORAL.SUSP 900 ML PO (10:58)
[2024-08-11] MEDS: iohexoL 350 MG/ML 100 ML INFUS..BTL IV (10:59)
== END 2024-08-11 08:29 | disposition home or self-care (01) ==
LOC: HO.CT 08:28
PROVIDERS: PCP Internal Medicine; Visit Provider Internal Medicine
DX: K40.21 Bilateral inguinal hernia, without obstruction or gangrene, recurrent (principal); R10.30 Lower abdominal pain, unspecified; Z98.890 Other specified postprocedural states; Z87.19 Personal history of other diseases of the digestive system
CPT/HCPCS: 74177; Q9967

== ENCOUNTER → 2024-08-11 08:29 | Outpatient (BNV) | payer MEDICARE, SELFPAY | PROVIDERS: PCP Internal Medicine; Visit Provider Nuclear Medicine | DX: K57.90 Diverticulosis of intestine, part unspecified, without perforation or abscess without bleeding (principal) | CPT/HCPCS: 74177 ==

== ENCOUNTER 2025-01-08 08:58 | Outpatient (REF) | payer MEDICARE, SELFPAY ==
[2025-01-08 09:10] LABS: MANUAL DIFF FLAG NO
--- OUTSIDE RECORDS SUMMARY | 2025-01-08 09:57 | XMS_ITS | Patient Health Record ---
Author Organization [facility] Address [address] [place] [address] Care Team Providers Care Stock Roller Name Role Phone Alvino Ball Unavailable [phone] Reason For Referral No Information Plan Of Treatment No Information
[2025-01-08 10:02] LABS: Hematocrit 39.3 % (42.0-52.0); Hemoglobin 13.5 g/dl (14.0-18.0); Imm Gran Abs Auto 0.01 X10*3/uL (0.00-0.03); Imm Gran Pct Auto 0.2 % (0.0-0.4); Lymphocytes Absolute Auto 1.4 X10*3/uL (1.2-4.9); Mean Corpuscular HGB Conc 34.4 g/dl (31.0-36.0); Mean Corpuscular Hemoglobin 32.8 pg (27.0-33.0); Mean Corpuscular Volume 95.4 fL (80.0-98.0); NRBC Abs Auto 0.000 X10*3/uL (0.0-0.012); NRBC Pct Auto 0.0 /100WBC (0.0-0.2); Platelet Count 238 X10*3/uL (160-400); Red Blood Count 4.12 X10*6/uL (4.60-5.80); White Blood Count 4.6 X10*3/uL (4.8-10.8)
[2025-01-08 11:47] LABS: Free T4 (Free Thyroxine) < 0.42 ng/dL (0.71-1.85)
== END 2025-01-08 08:59 | disposition home or self-care (01) ==
LOC: HO.LAB 08:58
PROVIDERS: PCP Internal Medicine; Visit Provider Internal Medicine
DX: E03.9 Hypothyroidism, unspecified (principal); Z98.890 Other specified postprocedural states; Z85.46 Personal history of malignant neoplasm of prostate; Z87.19 Personal history of other diseases of the digestive system
CPT/HCPCS: 36415; 84439; 84443; 85025

== ENCOUNTER 2025-02-02 13:44 | Outpatient (AMB) | payer MEDICARE, SELFPAY ==
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
[2025-02-02 13:49] VITALS: BP 108/76; PULSE 76; RESP 16; TEMP 36.3; O2SAT 98; BMI 26.1
--- OUTSIDE RECORDS SUMMARY | 2025-02-02 14:42 | XMS_ITS | Patient Health Record ---
Author Organization [facility] Address [address] [place] [address] Care Team Providers Care Space Operations Officer Name Role Phone Alvino Ball Unavailable [phone] Reason For Referral No Information Plan Of Treatment No Information
== END 2025-02-02 14:33 | disposition home or self-care (01) ==
LOC: HO.HMCHD 13:44
PROVIDERS: PCP Internal Medicine; Visit Provider Physician Assistant
DX: E03.9 Hypothyroidism, unspecified (principal); I10 Essential (primary) hypertension; E78.5 Hyperlipidemia, unspecified

== ENCOUNTER 2025-02-02 13:44 | Outpatient (REF) | payer MEDICARE, SELFPAY ==
[2025-02-02 15:48] LABS: Alanine Aminotransferase 31 U/L (0-40); Albumin Level 5.1 g/dL (3.5-5.0); Alkaline Phosphatase 108 U/L (39-117); Anion Gap 13 (12-20); Aspartate Amino Transferase 36 U/L (5-37); Blood Urea Nitrogen 22 mg/dL (9-16); Calcium 10.0 mg/dL (8.4-10.2); Carbon Dioxide 26 mmol/L (22-29); Chloride 108 mmol/L (96-108); Cholesterol 177 mg/dL (<200); Estimated Glomerular Filt Rate > 60; HDL Cholesterol 52 mg/dL (>40); Potassium 4.4 mmol/L (3.3-5.1); Sodium 143 mmol/L (135-145); Total Protein 8.9 g/dL (6.5-8.0); Triglycerides 102 mg/dL (<150)
[2025-02-02 16:06] LABS: Free T4 (Free Thyroxine) 1.36 ng/dL (0.71-1.85)
== END 2025-02-02 13:45 | disposition home or self-care (01) ==
LOC: HO.LAB 13:44
PROVIDERS: PCP Internal Medicine; Visit Provider Physician Assistant
DX: I10 Essential (primary) hypertension (principal); E03.9 Hypothyroidism, unspecified; E78.5 Hyperlipidemia, unspecified; Z85.46 Personal history of malignant neoplasm of prostate; Z79.890 Hormone replacement therapy; Z79.899 Other long term (current) drug therapy
CPT/HCPCS: 36415; 80048; 80061; 80076; 84439; 84443; 86376; 99212

== ENCOUNTER 2025-03-07 09:00 | Outpatient (REF) | payer MEDICARE, SELFPAY ==
[2025-03-07 11:51] LABS: Free T4 (Free Thyroxine) 0.82 ng/dL (0.71-1.85)
== END 2025-03-07 09:01 | disposition home or self-care (01) ==
LOC: HO.10HDL 09:00
PROVIDERS: Visit Provider Physician Assistant
DX: E03.9 Hypothyroidism, unspecified (principal)
CPT/HCPCS: 36415; 84439; 84443

== ENCOUNTER 2025-03-12 09:24 | Outpatient (REF) | payer MEDICARE, SELFPAY ==
[2025-03-12 12:08] LABS: Free T4 (Free Thyroxine) 0.84 ng/dL (0.71-1.85); Thyroid Stimulating Hormone 12.38 uIU/mL (0.32-4.0)
== END 2025-03-12 09:25 | disposition home or self-care (01) ==
LOC: HO.10HDL 09:24
PROVIDERS: Visit Provider Physician Assistant
DX: E03.9 Hypothyroidism, unspecified (principal)
CPT/HCPCS: 36415; 84439; 84443; 84481

== ENCOUNTER 2025-03-15 13:56 | Outpatient (AMB) | payer MEDICARE, SELFPAY ==
[2025-03-15 14:03] VITALS: BP 110/68; PULSE 75; O2SAT 97; BMI 25.8
--- NOTE | 2025-03-15 14:03 | A.OFFVIS_ITS ---
Vital Signs 03/15/25 14:03 Height 5 ft 6 in Weight 159 lb 13.362 oz BMI 25.8 BP 110/68 Blood Pressure Location Lt brachial Position Sitting Pulse 75 Pulse Source Pulse Oximeter Pulse Oximetry (%) 97 Oxygen Delivery Method Room Air Intake Visit Reasons: Hypothyroidism Intake Note: New patient internally referred by PCP for Hypothyroidism. Patient reports he is currently taking Levothyroxine 50 mcg and would like to discuss if he should take the increase dose of 75 mcg. 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 Accompanied by: Spouse Allergies Iodinated Contrast Media (IV Dye, Iodine Containing) Adverse Reaction (Severe, Verified 03/15/25 14:04) ALTERED MENTAL STATUS Medication List - Last Reconciled 03/15/25 by Alvino Bhardwaj MD amlodipine 10 mg PO DAILY diphenhydramine HCl 50 mg PO BEDTIME PRN levothyroxine (Levoxyl) 75 mcg PO DAILY pkbsoeapubep-ejxb-xhngo acid 18-400 mg-mcg 1 tab PO DAILY pravastatin 80 mg PO DAILY vit B6-mag cit,oxid-potass cit 3.75-45-45-49.5 mg ER (Theralith XR) 2 tabs PO BID HPI Comments Details: 89 YO Male who is seen in consultation at the request of his PCP for Hyothyroidism. First diagnosed with Hypothyroidism 2022 with labs revealing TSH>100. Currently using levothyroxine 50 ug . Been on same dose since diagnosis Denies - fatigue, -weight gain, -cold intolerance, -dry skin, -hair loss, - constipation. There is hx of hyperlipidemia . Denies obstructive sx of goiter . Denies consuming any kelp or seaweed. Denies taking amiodarone. Biotin: NO [] Labs: The patient is an 89 year old male presenting for evaluation and management of his underactive thyroid. He was diagnosed with hypothyroidism in 2022 and has been on levothyroxine 50 mcg since that time, with fluctuating TSH levels. His TSH has been as high as 17 and at one point was greater than 100, at which time he was told he was at risk for a myxedema coma, but no dose change was made. At one point, his physician advised him to stop levothyroxine for three months for re-testing, but due to intervening surgeries and vacations, this did not occur. He has been back on levothyroxine 50 mcg continuously since January 08, and his TSH is currently 12. He reports compliance with taking his medication on an empty stomach in the morning, a half hour before breakfast. Associated symptoms include sudden chills. He denies fatigue, weight gain, dry skin, constipation, or issues with choking or swallowing. His mother had hyp erthyroidism. His other medical history includes hyperlipidemia, for which he takes pravastatin 80 mg. He has a history of bradycardia and kidney stones. He denies taking supplements such as biotin, kelp, or seaweed, and denies a history of amiodarone use. - TSH: 12 (Current, on levothyroxine 50 mcg). - TSH: >100 (Historical). - TSH: 58 (Historical). - TSH: 17 (Historical). 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 Hx of cholecystectomy Hx of knee surgery History of herniated intervertebral disc Hx of inguinal hernia repair Family History Maternal Grandmother Diabetes Maternal Uncle Diabetes Maternal Aunt Diabetes Mother Diabetes HTN (hypertension) Colon cancer Stroke Father Hernia Stroke Diverticulosis Pneumonia Brother Epilepsia Schizophrenia Social History Housing: House Alcohol intake: current Alcohol intake frequency: holidays/special occasions only Patient Tobacco Use Status: Never used Tobacco service: No Current occupational status: retired Cognitive needs: No Hearing needs: No Vision needs: No Physical Exam Vital Signs: Last Vital Signs Pulse 75 03/15/25 14:03 BP 110/68 03/15/25 14:03 Pulse Ox 97 03/15/25 14:03 Oxygen Delivery Method Room Air 03/15/25 14:03 BMI result Body Mass Index 25.8 HEENT reveals absence of lid lag , stare or proptosis or eyebrow loss. Thyroid gland measure 15 gms . No nodules or tenderness palpated. There is no cervical adenopathy palpated. Lungs CTA. Heart S1, S2 Reg R/R -M/R/G. Abdominal exam benign. Skin exam reveals absence of dryness or thyroid dermopathy or vitiligo. Nail exam reveals absence of thyroid acropachy or oncholysis. Neurologic exam reveals 2+ reflexes . Muscle Strength is 5/5 proximally. There are no tremors in upper extremities. Assessment & Plan Assessment & Plan (1) Hypothyroid: Code(s): E03.9 - Hypothyroidism, unspecified Category: Medical Qualifiers: Hypothyroidism type: unspecified Qualified Code(s): E03.9 - Hypothyroidism, unspecified Plan: 1. 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 His current TSH of 12 on levothyroxine 50 mcg indicates inadequate treatment. While a mildly elevated TSH can be protective in older adults, a level of 12 is too high and may increase the risk for cardiac events. His reported chills may also be related to his low thyroid state. I concur with his PCP's plan to increase levothyroxine. Increase levothyroxine to 75 mcg daily. Recheck TSH in 6 weeks to assess for therapeutic effect. Patient instructed to retain his 50 mcg tablets in case future dosage adjustments require it. If TSH levels continue to fluctuate, may consider a brand-name product (e.g., Synthroid) for improved stability. Follow up in the office in 3 months. The patient had an opportunity to ask questions regarding treatment plan. The patient expressed understanding and agreement with the above treatment plan. . Patient was informed and verbally consented to the use of an ambient scribe for clinic note documentation during this visit. Orders: Orders Free T4 (Free Thyroxine) 6 Weeks E03.9 - Hypothyroidism, unspecified Thyroid Stimulating Hormone 6 Weeks E03.9 - Hypothyroidism, unspecified Coding Level of Care Code New Pt Level 4 (01088) Add On Problem Visit Only Diagnoses Hypothyroidism, unspecified type E03.9 Hypothyroidism type: unspecified
--- OUTSIDE RECORDS SUMMARY | 2025-03-15 21:24 | XMS_ITS | Patient Health Record ---
Author Organization [facility] Address [address] [place] [address] Care Team Providers Care Couture Alterations Dressmaker Name Role Phone Alvino Ball Unavailable [phone] Reason For Referral No Information Plan Of Treatment No Information
== END 2025-03-15 14:49 | disposition home or self-care (01) ==
LOC: HO.ENCR 13:57
PROVIDERS: PCP Internal Medicine; Visit Provider Internal Medicine Endocrinology, Diabetes & Metabolism
DX: E03.9 Hypothyroidism, unspecified (principal)
CPT/HCPCS: 99204; G2211

== ENCOUNTER → 2025-03-15 13:56 | Outpatient (BNVA) | payer MEDICARE, SELFPAY | PROVIDERS: PCP Internal Medicine; Visit Provider Internal Medicine Endocrinology, Diabetes & Metabolism | DX: E03.9 Hypothyroidism, unspecified (principal) | CPT/HCPCS: 99202 ==